=== PATIENT | male | born 1955 | race Caucasian/White ===

== ENCOUNTER 2020-11-24 09:06 | Outpatient (REF) | payer MEDICARE, SELFPAY ==
--- NOTE | ~2020-11-24 | XR_ITS ---
EXAMINATION: XR KNEE, RIGHT XR KNEE, LEFT CLINICAL INFORMATION: Pain. COMPARISON: None. TECHNIQUE: AP, lateral, and sunrise views of the right and left knee. FINDINGS: Right Knee: Moderate medial compartment joint space narrowing. Small medial and patellofemoral compartment marginal osteophytes. No osseous erosion. No fracture or dislocation. No abnormal soft tissue calcification. No significant joint effusion. Left Knee: Moderate medial compartment joint space narrowing. Small patellofemoral and medial compartment marginal osteophytes. No osseous erosion. No fracture or dislocation. No abnormal soft tissue calcification. Trace joint effusion. XR/XR knee RT 3V IMPRESSION: RIGHT KNEE: Moderate medial and mild patellofemoral compartment osteoarthritis. LEFT KNEE: Moderate medial and mild patellofemoral compartment osteoarthritis. Trace joint effusion.
--- NOTE | ~2020-11-24 | XR_ITS ---
EXAMINATION: XR KNEE, RIGHT XR KNEE, LEFT CLINICAL INFORMATION: Pain. COMPARISON: None. TECHNIQUE: AP, lateral, and sunrise views of the right and left knee. FINDINGS: Right Knee: Moderate medial compartment joint space narrowing. Small medial and patellofemoral compartment marginal osteophytes. No osseous erosion. No fracture or dislocation. No abnormal soft tissue calcification. No significant joint effusion. Left Knee: Moderate medial compartment joint space narrowing. Small patellofemoral and medial compartment marginal osteophytes. No osseous erosion. No fracture or dislocation. No abnormal soft tissue calcification. Trace joint effusion. XR/XR knee LT 3V IMPRESSION: RIGHT KNEE: Moderate medial and mild patellofemoral compartment osteoarthritis. LEFT KNEE: Moderate medial and mild patellofemoral compartment osteoarthritis. Trace joint effusion.
--- NOTE | ~2020-11-24 | XR_ITS ---
EXAMINATION: XR HAND/WRIST, RIGHT XR HAND/WRIST, LEFT CLINICAL INFORMATION: Pain. COMPARISON: None. TECHNIQUE: AP, oblique, lateral, and scaphoid views of the bilateral hands and wrists. FINDINGS: Right Hand and Wrist: No acute fracture or dislocation. Possible corticated ossifications adjacent to the ulnar styloid, which could represent accessory ossicles versus remote fracture fragments. Normal carpal alignment. Tiny marginal osteophytes at the triscaphe and 1st carpometacarpal joints as well as at the 1st metacarpal phalangeal joint. No osseous erosion. Left Hand and Wrist: No acute fracture or dislocation. Normal carpal alignment. Tiny marginal osteophytes at the triscaphe and 1st carpometacarpal joints. No osseous erosion. No abnormal soft tissue calcification. XR/XR hand wrist RT IMPRESSION: RIGHT HAND AND WRIST: Mild degenerative arthritis at the triscaphe, 1st carpal metacarpal, and 1st metacarpal phalangeal joints. LEFT HAND AND WRIST: Mild degenerative arthritis at the triscaphe and 1st carpal metacarpal joints.
--- NOTE | ~2020-11-24 | XR_ITS ---
EXAMINATION: XR HAND/WRIST, RIGHT XR HAND/WRIST, LEFT CLINICAL INFORMATION: Pain. COMPARISON: None. TECHNIQUE: AP, oblique, lateral, and scaphoid views of the bilateral hands and wrists. FINDINGS: Right Hand and Wrist: No acute fracture or dislocation. Possible corticated ossifications adjacent to the ulnar styloid, which could represent accessory ossicles versus remote fracture fragments. Normal carpal alignment. Tiny marginal osteophytes at the triscaphe and 1st carpometacarpal joints as well as at the 1st metacarpal phalangeal joint. No osseous erosion. Left Hand and Wrist: No acute fracture or dislocation. Normal carpal alignment. Tiny marginal osteophytes at the triscaphe and 1st carpometacarpal joints. No osseous erosion. No abnormal soft tissue calcification. XR/XR hand wrist LT IMPRESSION: RIGHT HAND AND WRIST: Mild degenerative arthritis at the triscaphe, 1st carpal metacarpal, and 1st metacarpal phalangeal joints. LEFT HAND AND WRIST: Mild degenerative arthritis at the triscaphe and 1st carpal metacarpal joints.
[2020-11-24 10:42] LABS: MANUAL DIFF FLAG NO
[2020-11-24 11:00] LABS: Basophils Absolute Auto 0.1 X10*3/uL (0.0-0.2); Basophils Percent Auto 0.9 % (0-2); Eosinophils Absolute Auto 0.3 X10*3/uL (0.0-0.4); Eosinophils Percent Auto 3.6 % (0-4); Hematocrit 44.8 % (42-52); Hemoglobin 14.4 g/dl (14.0-18.0); Imm Gran Abs Auto 0.03 X10*3/uL (0.00-0.03); Imm Gran Pct Auto 0.4 % (0.0-0.4); Lymphocytes Absolute Auto 3.5 X10*3/uL (1.2-4.9); Lymphocytes Percent Auto 43.5 % (20-40); Mean Corpuscular HGB Conc 32.1 g/dl (31.0-36.0); Mean Corpuscular Hemoglobin 29.4 pg (27.0-33.0); Mean Corpuscular Volume 91.4 fL (80-98); Mean Platelet Volume 10.9 fL (9.4-12.4); Monocytes Absolute Auto 0.5 X10*3/uL (0.1-1.2); Monocytes Percent Auto 5.7 % (2-11); Neutrophils Absolute Auto 3.7 X10*3/uL (2.0-8.3); Neutrophils Percent Auto 45.9 % (45-73); Platelet Count 212 X10*3/uL (160-400); Red Cell Distribution Width 13.7 % (11.0-16.0)
[2020-11-24 11:31] LABS: Alanine Aminotransferase 27 U/L (0-40); Albumin Level 4.5 g/dL (3.5-5.0); Alkaline Phosphatase 82 U/L (39-117); Anion Gap 12 (12-20); Aspartate Amino Transferase 19 U/L (5-37); Bilirubin Total 0.6 mg/dL (0.0-1.0); Blood Urea Nitrogen 24 mg/dL (9-16); C Reactive Protein 0.43 mg/dL (< or = 0.50); Calcium 9.4 mg/dL (8.4-10.2); Carbon Dioxide 25 mmol/L (22-29); Chloride 109 mmol/L (96-108); Estimated Glomerular Filt Rate > 60; Glucose Random 116 mg/dL (60-115); Potassium 4.2 mmol/L (3.3-5.1); Rheumatoid Factor 15.4 IU/mL (<15.0); Sodium 142 mmol/L (135-145); Total Protein 7.3 g/dL (6.5-8.0)
[2020-11-24 11:35] LABS: Erythrocyte Sedimentation Rate 10 MM/HR (0-15)
[2020-11-24 11:54] LABS: HBc Num1 0.14 S/CO (0.00-0.79); Hepatitis B Core Antibody Nonreactive (Nonreactive); Hepatitis B Surface Antigen Negative (Negative); ~HepC Num1 0.07 S/CO (0.00-0.79); ~Hepatitis C Antibody Nonreactive (Nonreactive)
[2020-11-24 12:06] LABS: ~Hepatitis B Surface Antibody NONREACTIVE (Nonreactive)
[2020-11-24 13:57] LABS: HBS Num1 0.23 mIU/mL (0-7.99); Hepatitis A Antibody IgM 0.25 Index (0-0.79); ~Hepatitis A Antibody IgM Nonreactive (Nonreactive)
[2020-11-26 12:31] LABS: Cyclic Citrullinated Peptide <16 UNITS
[2020-11-27 18:56] LABS: TS Negative Control Passed; TS Panel A 5; TS Panel B 1; TS Positive Control Passed; TSpotTB BORDERLINE (SeeBelow)
== END 2020-11-24 09:07 | disposition home or self-care (01) ==
LOC: HO.LAB 09:06
PROVIDERS: PCP Internal Medicine; Visit Provider Student in an Organized Health Care Education/Training Program
DX: Z01.84 Encounter for antibody response examination (principal); Z11.59 Encounter for screening for other viral diseases; Z11.1 Encounter for screening for respiratory tuberculosis; M79.641 Pain in right hand; M79.642 Pain in left hand; M25.561 Pain in right knee; M25.562 Pain in left knee
CPT/HCPCS: 36415; 73110; 73130; 73562; 80053; 85025; 85652; 86140; 86200; 86431; 86481; 86704; 86706; 86709; 86803; 87340; 99202

== ENCOUNTER → 2020-12-07 10:48 | Outpatient (BNVA) | payer MEDICARE, SELFPAY | PROVIDERS: PCP Internal Medicine; Visit Provider Student in an Organized Health Care Education/Training Program | DX: M05.9 Rheumatoid arthritis with rheumatoid factor, unspecified (principal); M25.561 Pain in right knee; M25.562 Pain in left knee; G89.29 Other chronic pain; M19.041 Primary osteoarthritis, right hand; M19.042 Primary osteoarthritis, left hand | CPT/HCPCS: 99212 ==

== ENCOUNTER 2021-03-11 10:59 | Outpatient (REF) | payer MEDICARE, SELFPAY ==
[2021-03-11 12:03] LABS: MANUAL DIFF FLAG NO
[2021-03-11 12:40] LABS: Basophils Absolute Auto 0.1 X10*3/uL (0.0-0.2); Basophils Percent Auto 0.5 % (0-2); Eosinophils Absolute Auto 0.3 X10*3/uL (0.0-0.4); Eosinophils Percent Auto 3.5 % (0-4); Hematocrit 43.1 % (42-52); Hemoglobin 14.6 g/dl (14.0-18.0); Imm Gran Abs Auto 0.03 X10*3/uL (0.00-0.03); Imm Gran Pct Auto 0.3 % (0.0-0.4); Lymphocytes Absolute Auto 4.5 X10*3/uL (1.2-4.9); Lymphocytes Percent Auto 47.6 % (20-40); Mean Corpuscular HGB Conc 33.9 g/dl (31.0-36.0); Mean Corpuscular Volume 91.5 fL (80-98); Mean Platelet Volume 11.2 fL (9.4-12.4); Monocytes Absolute Auto 0.6 X10*3/uL (0.1-1.2); Monocytes Percent Auto 6.2 % (2-11); Neutrophils Percent Auto 41.9 % (45-73); Platelet Count 205 X10*3/uL (160-400); Red Blood Count 4.71 X10*6/uL (4.60-5.80); Red Cell Distribution Width 13.4 % (11.0-16.0); White Blood Count 9.5 X10*3/uL (4.8-10.8)
[2021-03-11 13:11] LABS: Alanine Aminotransferase 25 U/L (0-40); Albumin Level 4.4 g/dL (3.5-5.0); Alkaline Phosphatase 96 U/L (39-117); Anion Gap 11 (12-20); Aspartate Amino Transferase 19 U/L (5-37); Bilirubin Total 0.4 mg/dL (0.0-1.0); Blood Urea Nitrogen 25 mg/dL (9-16); C Reactive Protein 0.69 mg/dL (< or = 0.50); Calcium 9.2 mg/dL (8.4-10.2); Carbon Dioxide 28 mmol/L (22-29); Chloride 106 mmol/L (96-108); Estimated Glomerular Filt Rate > 60; Glucose Random 77 mg/dL (60-115); Potassium 4.1 mmol/L (3.3-5.1); Sodium 141 mmol/L (135-145); Total Protein 7.7 g/dL (6.5-8.0)
[2021-03-11 13:34] LABS: Erythrocyte Sedimentation Rate 9 MM/HR (0-15)
== END 2021-03-11 11:00 | disposition home or self-care (01) ==
LOC: HO.LAB 10:59
PROVIDERS: PCP Internal Medicine; Visit Provider Nurse Practitioner Family
DX: M05.9 Rheumatoid arthritis with rheumatoid factor, unspecified (principal); M19.041 Primary osteoarthritis, right hand; M19.042 Primary osteoarthritis, left hand
CPT/HCPCS: 36415; 80053; 85025; 85652; 86140; 99212

== ENCOUNTER 2021-04-05 15:00 | Outpatient (RCR) | payer MEDICARE, SELFPAY ==
--- NOTE | 2021-03-21 15:28 | MHC.OT.OEV ---
[address] [phone] F: [phone] Occupational Therapy Evaluation Diagnosis: BILATERAL HAND PAIN Date of Onset: 02/12/00 Attending Provider: Layla Rangel Prescribed Treatment: FRANKLIN KINCAID Follow Up Appointment: 06/10/21 History of Current Condition: REPORTS ABOUT A TWENTY YEAR HISTORY OF B/L HAND PAIN. RECENTLY SEEN BY EXTRACTOR TENDER RAW STOCK WHO DIAGNOSED HIM WITH RA ([facility] FAMILY HISTORY). HE REPORTS CONSTANT ACHY, THROBBING PAIN IN HANDS. INCREASED STIFFNESS IN THE MORNING, DIFFICULTIES MAKING A FIST YET IMPROVES WITH ACTIVITY. 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 USING MODIFIED VEHICLE FUEL SYSTEMS CONVERTER AND CARRYING WITH SHOULDER AND ELBOW TO LIFT HEAVY ITEMS. HAS STOPPED PLAYING GUITAR DUE TO B/L HAND PAIN. Sleep: MODERATE DIFFICULTIES: OCCASIONALLY WAKES FROM SLEEP DUE TO PAIN. 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 Driving: NO DIFFICULTIES Vision: GLASSES Pain Assessment Pain Score: 3-9/10 Pain Scale Used: Numeric (0 - 10) Pain Location and Description: ACHY, B/L HAND PAIN MCPs, IPs AND CMC 3/10 AT REST/ DURING THE DAY; 8-9/10 AT NIGHT Aggravating Factors: GRIPPING, COLD Alleviating Factors: HEAT, TRAMADOL (NO RELIEF YET) Skin and Soft Tissue Assessment Skin and Soft Tissue: Swelling Comments: REPORTS EDEMA IN IPs AND MCPs IN B/L HANDS Edema Assessment Upper Extremity: Right Impaired Left Impaired Lower Extremity: Comments: CIRCUMFERENCE OF MCPs D2-D5: RIGHT 22.2 CM, LEFT 21.9 CM Dexterity Assessment Dexterity: WFL Comments: FUNCTIONAL DEXTERITY TEST: 24 SECONDS B/L HANDS Special Tests Comments: AROM(PROM) Strength Digits Index MCP: PIP: DIP: Long MCP: PIP: DIP: Ring MCP: PIP: DIP: Small MCP: PIP: DIP: Comments: Gross Grasp: R 45, L 38 Lateral Pinch: R 11, L 10 Two-Point Pinch: Three-Jaw Dyllan: Comments: Patient Education 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 Patient demonstrates Patient verbalizes Barriers to Learning: None Readiness for Learning: Accepting Who was educated? Patient Comments: Plan of Care Assessment: OSMANY PRESENTS WITH ABOUT A TWENTY YEAR HISTORY OF B/L HAND PAIN. HE RECENTLY SAW A EXTRACTOR TENDER RAW STOCK FOR THE FIRST TIME IN NOVEMBER 2020 WHO DIAGNOSED HIM WITH RHEUMATOID ARTHRITIS. HE HAS A 43 YEAR HISTORY OF WORKING IN THE [employer] AND HEAVY USE OF HANDS WITH HIS HOBBIES. HE REPORTS HIS PAIN IS GREATEST IN THE MORNING AND LASTS FOR ABOUT 30 MINUTES. HE HAS BEEN ABLE TO TOLERATE A CONSTANT ACHY PAIN DURING THE DAY. A 57% LIMITATION IS REPORTED PER THE QUICK DASH ASSESSMENT. ONGOING SKILLED OT IS WARRANTED TO ACHIEVE OPTIMAL FUNCTIONAL LEVEL AND IMPROVE QOL. STG Duration: 3 WEEKS Short Term Goals: IND HEP IND JOINT PROTECTION AND ACTIVITY MODIFICATION IND USE OF HEAT, INCLUDING HOME PARAFFIN UNIT INCREASE B/L VEHICLE FUEL SYSTEMS CONVERTER STRENGTH BY 10 POUNDS REPORT MIN DIFFICULTIES WITH SLEEPING REPORT <4/10 PAIN WITH ADLs AND LIGHT IADLs QUICK DASH <40% LTG Duration: Oracle Ebs Architect Goals: SEE ABOVE Frequency and Duration: The patient will be seen 2X/WEEK FOR 3 WEEKS Treatment Plan: Therapeutic Exercise Therapeutic Activity Home Exercise Program Splinting Neuro Re-ed Patient Education Desensitization/Sensory Re-ed Edema Control ADL Training Ultrasound NMES Iontophoresis Paraffin Fluidotherapy MHP Cold Packs Joint Mobilization Soft Tissue Mobilization Kinesiotaping Other (see comments) Electronically Signed By: LEODAN NETTLES OTR/L Reviewed/agree with student documentation: N/A Therapist: Please sign and return to therapist, Thank you for your referral.
--- NOTE | 2021-04-26 14:21 | MHC.OT.DC ---
[address] [phone] F: [phone] Occupational Therapy Discharge Note Provider: Layla Rangel Diagnosis: BILATERAL HAND PAIN Date of Evaluation: 03/21/21 Date of Discharge: 04/26/21 Treatments to Date: 3 Cancellations to Date: 2 No Shows to Date: 3 Discharge Status: Recommend MD Follow-up Visit Non-compliance Discharge Summary: MR LLAMAS WAS SEEN FOR AN INITIAL EVALUATION AND TWO ADDITIONAL TREATMENT SESSIONS. DURING HIS TIME IN OT, A CUSTOM NIGHT ORTHOSIS WAS FABRICATED AND Pt WAS EDUCATED ON JOINT PROTECTION, HEP AND USE OF A HOME PARAFFIN UNIT. Pt CONTINUED TO NEED ADDITIONAL EDUCATION ON RA MANAGEMENT AND TASK MODIFICATIONS. Pt HAS HAD A THREE WEEK LAPSE IN HIS THERAPY, WELL THREE NO-SHOWS. Pt WILL BE DISCHARGED FROM OT AND RECOMMEND MD FOLLOW UP. Electronically Signed By: LEODAN NETTLES OTR/Luciano Reviewed/agree with student documentation: N/A Therapist: Please Sign and return to therapist, thank you for your referral.
== END 2021-04-26 14:20 | disposition home or self-care (01) ==
LOC: HO.OT 15:00
PROVIDERS: PCP Internal Medicine; Visit Provider Nurse Practitioner Family
DX: M79.641 Pain in right hand (principal); M79.642 Pain in left hand
CPT/HCPCS: 29125; 97018; 97035; 97110; 97165; 97760

== ENCOUNTER 2021-06-10 13:32 | Outpatient (REF) | payer MEDICARE, SELFPAY ==
[2021-06-10 14:41] LABS: MANUAL DIFF FLAG NO
[2021-06-10 15:08] LABS: Basophils Absolute Auto 0.1 X10*3/uL (0.0-0.2); Basophils Percent Auto 0.6 % (0-2); Eosinophils Absolute Auto 0.3 X10*3/uL (0.0-0.4); Eosinophils Percent Auto 2.6 % (0-4); Hematocrit 45.3 % (42.0-52.0); Hemoglobin 14.9 g/dl (14.0-18.0); Imm Gran Abs Auto 0.05 X10*3/uL (0.00-0.03); Imm Gran Pct Auto 0.4 % (0.0-0.4); Lymphocytes Absolute Auto 4.1 X10*3/uL (1.2-4.9); Lymphocytes Percent Auto 35.7 % (20-40); Mean Corpuscular HGB Conc 32.9 g/dl (31.0-36.0); Mean Corpuscular Hemoglobin 29.7 pg (27.0-33.0); Mean Corpuscular Volume 90.2 fL (80.0-98.0); Mean Platelet Volume 10.8 fL (9.4-12.4); Monocytes Absolute Auto 0.7 X10*3/uL (0.1-1.2); Neutrophils Absolute Auto 6.3 x10*3/uL (2.0-8.3); Neutrophils Percent Auto 54.7 % (45-73); Platelet Count 218 X10*3/uL (160-400); Red Blood Count 5.02 X10*6/uL (4.60-5.80); Red Cell Distribution Width 13.3 % (11.0-16.0); White Blood Count 11.5 X10*3/uL (4.8-10.8)
[2021-06-10 15:33] LABS: Alanine Aminotransferase 23 U/L (0-40); Albumin Level 4.5 g/dL (3.5-5.0); Alkaline Phosphatase 88 U/L (39-117); Anion Gap 12 (12-20); Aspartate Amino Transferase 19 U/L (5-37); Bilirubin Total 0.6 mg/dL (0.0-1.0); Blood Urea Nitrogen 25 mg/dL (9-16); C Reactive Protein 0.54 mg/dL (< or = 0.50); Carbon Dioxide 29 mmol/L (22-29); Chloride 105 mmol/L (96-108); Estimated Glomerular Filt Rate 55; Glucose Random 94 mg/dL (60-115); Potassium 4.8 mmol/L (3.3-5.1); Sodium 141 mmol/L (135-145); Total Protein 7.7 g/dL (6.5-8.0)
[2021-06-10 20:43] LABS: Erythrocyte Sedimentation Rate 10 MM/HR (0-15)
== END 2021-06-10 13:33 | disposition home or self-care (01) ==
LOC: HO.LAB 13:32
PROVIDERS: PCP Internal Medicine; Visit Provider Nurse Practitioner Family
DX: M05.9 Rheumatoid arthritis with rheumatoid factor, unspecified (principal); M19.041 Primary osteoarthritis, right hand; M19.042 Primary osteoarthritis, left hand
CPT/HCPCS: 36415; 80053; 85025; 85652; 86140; 99212

== ENCOUNTER 2021-08-11 12:58 | Outpatient (REF) | payer MEDICARE, SELFPAY ==
[2021-08-11 14:31] LABS: MANUAL DIFF FLAG NO
[2021-08-11 14:57] LABS: Basophils Absolute Auto 0.1 X10*3/uL (0.0-0.2); Basophils Percent Auto 0.7 % (0-2); Eosinophils Absolute Auto 0.2 X10*3/uL (0.0-0.4); Eosinophils Percent Auto 2.7 % (0-4); Hematocrit 45.7 % (42.0-52.0); Hemoglobin 15.1 g/dl (14.0-18.0); Imm Gran Abs Auto 0.03 X10*3/uL (0.00-0.03); Imm Gran Pct Auto 0.3 % (0.0-0.4); Lymphocytes Absolute Auto 3.8 X10*3/uL (1.2-4.9); Lymphocytes Percent Auto 41.7 % (20-40); Mean Corpuscular Hemoglobin 30.1 pg (27.0-33.0); Mean Corpuscular Volume 91.2 fL (80.0-98.0); Mean Platelet Volume 10.6 fL (9.4-12.4); Monocytes Absolute Auto 0.5 X10*3/uL (0.1-1.2); Neutrophils Absolute Auto 4.4 x10*3/uL (2.0-8.3); Neutrophils Percent Auto 48.6 % (45-73); Platelet Count 239 X10*3/uL (160-400); Red Blood Count 5.01 X10*6/uL (4.60-5.80); Red Cell Distribution Width 13.6 % (11.0-16.0)
[2021-08-11 15:18] LABS: Alanine Aminotransferase 25 U/L (0-40); Albumin Level 4.6 g/dL (3.5-5.0); Alkaline Phosphatase 88 U/L (39-117); Anion Gap 13 (12-20); Aspartate Amino Transferase 18 U/L (5-37); Bilirubin Total 0.4 mg/dL (0.0-1.0); Blood Urea Nitrogen 20 mg/dL (9-16); C Reactive Protein 0.84 mg/dL (< or = 0.50); Calcium 9.9 mg/dL (8.4-10.2); Carbon Dioxide 28 mmol/L (22-29); Chloride 104 mmol/L (96-108); Estimated Glomerular Filt Rate 56; Glucose Random 105 mg/dL (60-115); Potassium 5.1 mmol/L (3.3-5.1); Sodium 140 mmol/L (135-145); Total Protein 7.6 g/dL (6.5-8.0)
[2021-08-11 15:34] LABS: Erythrocyte Sedimentation Rate 14 MM/HR (0-15)
[2021-08-13 11:20] LABS: TS Negative Control Passed; TS Panel A 0; TS Panel B 0; TS Positive Control Passed; TSpotTB Negative (Negative)
== END 2021-08-11 12:59 | disposition home or self-care (01) ==
LOC: HO.LAB 12:58
PROVIDERS: PCP Internal Medicine; Visit Provider Nurse Practitioner Family
DX: Z11.1 Encounter for screening for respiratory tuberculosis (principal); M05.9 Rheumatoid arthritis with rheumatoid factor, unspecified; M19.041 Primary osteoarthritis, right hand; M19.042 Primary osteoarthritis, left hand
CPT/HCPCS: 36415; 80053; 85025; 85652; 86140; 86481; 99212

== ENCOUNTER 2021-09-12 09:35 | Outpatient (REF) | payer MEDICARE, SELFPAY ==
[2021-09-12 09:57] LABS: MANUAL DIFF FLAG NO
[2021-09-12 10:20] LABS: Basophils Absolute Auto 0.1 X10*3/uL (0.0-0.2); Basophils Percent Auto 0.6 % (0-2); Eosinophils Absolute Auto 0.4 X10*3/uL (0.0-0.4); Eosinophils Percent Auto 3.7 % (0-4); Hematocrit 44.1 % (42.0-52.0); Hemoglobin 14.6 g/dl (14.0-18.0); Imm Gran Abs Auto 0.04 X10*3/uL (0.00-0.03); Imm Gran Pct Auto 0.4 % (0.0-0.4); Lymphocytes Absolute Auto 3.8 X10*3/uL (1.2-4.9); Lymphocytes Percent Auto 39.4 % (20-40); Mean Corpuscular HGB Conc 33.1 g/dl (31.0-36.0); Mean Corpuscular Hemoglobin 30.4 pg (27.0-33.0); Mean Corpuscular Volume 91.9 fL (80.0-98.0); Mean Platelet Volume 10.7 fL (9.4-12.4); Monocytes Absolute Auto 0.6 X10*3/uL (0.1-1.2); Monocytes Percent Auto 5.8 % (2-11); Neutrophils Absolute Auto 4.9 x10*3/uL (2.0-8.3); Neutrophils Percent Auto 50.1 % (45-73); Platelet Count 206 X10*3/uL (160-400); Red Cell Distribution Width 14.3 % (11.0-16.0); White Blood Count 9.7 X10*3/uL (4.8-10.8)
[2021-09-12 11:01] LABS: Alanine Aminotransferase 31 U/L (0-40); Albumin Level 4.4 g/dL (3.5-5.0); Alkaline Phosphatase 89 U/L (39-117); Anion Gap 13 (12-20); Aspartate Amino Transferase 22 U/L (5-37); Bilirubin Total 0.6 mg/dL (0.0-1.0); Blood Urea Nitrogen 30 mg/dL (9-16); C Reactive Protein 0.48 mg/dL (< or = 0.50); Calcium 10.2 mg/dL (8.4-10.2); Carbon Dioxide 27 mmol/L (22-29); Chloride 106 mmol/L (96-108); Estimated Glomerular Filt Rate 53; Glucose Random 107 mg/dL (60-115); Potassium 4.9 mmol/L (3.3-5.1); Sodium 141 mmol/L (135-145); Total Protein 7.3 g/dL (6.5-8.0)
[2021-09-12 11:15] LABS: Erythrocyte Sedimentation Rate 8 MM/HR (0-15)
== END 2021-09-12 09:36 | disposition home or self-care (01) ==
LOC: HO.LAB 09:35
PROVIDERS: Visit Provider Nurse Practitioner Family
DX: M05.9 Rheumatoid arthritis with rheumatoid factor, unspecified (principal)
CPT/HCPCS: 36415; 80053; 85025; 85652; 86140

== ENCOUNTER → 2021-10-05 10:22 | Outpatient (BNVA) | payer MEDICARE, SELFPAY | PROVIDERS: PCP Internal Medicine; Visit Provider Nurse Practitioner Family | DX: M05.9 Rheumatoid arthritis with rheumatoid factor, unspecified (principal); M19.041 Primary osteoarthritis, right hand; M19.042 Primary osteoarthritis, left hand; Z79.891 Long term (current) use of opiate analgesic; Z79.899 Other long term (current) drug therapy | CPT/HCPCS: 99212 ==

== ENCOUNTER → 2022-01-02 08:07 | Outpatient (BNVA) | payer MEDICARE, SELFPAY | PROVIDERS: PCP Internal Medicine; Visit Provider Nurse Practitioner Family | DX: M05.9 Rheumatoid arthritis with rheumatoid factor, unspecified (principal); M19.041 Primary osteoarthritis, right hand; M19.042 Primary osteoarthritis, left hand | CPT/HCPCS: 99212 ==

== ENCOUNTER 2022-02-13 10:45 | Outpatient (REF) | payer MEDICARE, SELFPAY ==
--- NOTE | ~2022-02-13 | XR_ITS ---
EXAMINATION: XR HAND, BILATERAL CLINICAL INFORMATION: Rheumatoid arthritis. COMPARISON: Previous x-ray November 2020. TECHNIQUE: 3 views of each hand. FINDINGS: Right: Bone alignment is normal. No fracture or dislocation is seen. There is mild arthritis at the 1st MCP and FPC joint. There may be slight increased extension at the DIP joints of the 3rd, 4th and question 5th fingers. Joint spaces are otherwise normal. No erosions. There are soft tissue ossifications adjacent to the ulnar styloid that appear unchanged. Soft tissues are otherwise normal. Left: Bone alignment is normal. No fracture or dislocation is seen. There may be slight hyperextension of the DIP joints of the 3rd and 4th fingers. There is mild arthritis at the first MCP and FPC joints and DIP joints. Joint spaces are otherwise normal. No erosions are seen. There is a soft tissue dense calcification over the volar ulnar side of the wrist that appears unchanged. XR/XR hand RT min 3V IMPRESSION: Right: Mild degenerative arthritis at the thumb. Left: Mild degenerative arthritis at the thumb and DIP joints.
--- NOTE | ~2022-02-13 | XR_ITS ---
EXAMINATION: XR HAND, BILATERAL CLINICAL INFORMATION: Rheumatoid arthritis. COMPARISON: Previous x-ray November 2020. TECHNIQUE: 3 views of each hand. FINDINGS: Right: Bone alignment is normal. No fracture or dislocation is seen. There is mild arthritis at the 1st MCP and S[facility] joint. There may be slight increased extension at the DIP joints of the 3rd, 4th and question 5th fingers. Joint spaces are otherwise normal. No erosions. There are soft tissue ossifications adjacent to the ulnar styloid that appear unchanged. Soft tissues are otherwise normal. Left: Bone alignment is normal. No fracture or dislocation is seen. There may be slight hyperextension of the DIP joints of the 3rd and 4th fingers. There is mild arthritis at the first MCP and [facility] joints and DIP joints. Joint spaces are otherwise normal. No erosions are seen. There is a soft tissue dense calcification over the volar ulnar side of the wrist that appears unchanged. XR/XR hand LT min 3V IMPRESSION: Right: Mild degenerative arthritis at the thumb. Left: Mild degenerative arthritis at the thumb and DIP joints.
== END 2022-02-13 10:46 | disposition home or self-care (01) ==
LOC: HO.XRAY 10:45
PROVIDERS: PCP Internal Medicine; Visit Provider Nurse Practitioner Family
DX: M05.9 Rheumatoid arthritis with rheumatoid factor, unspecified (principal)
CPT/HCPCS: 73130

== ENCOUNTER → 2022-03-15 15:08 | Outpatient (BNVA) | payer MEDICARE, SELFPAY | PROVIDERS: PCP Internal Medicine; Visit Provider Urology | DX: N40.1 Benign prostatic hyperplasia with lower urinary tract symptoms (principal); N13.8 Other obstructive and reflux uropathy; N52.9 Male erectile dysfunction, unspecified; R97.20 Elevated prostate specific antigen [PSA] | CPT/HCPCS: 99202 ==

== ENCOUNTER → 2022-04-10 08:16 | Outpatient (BNVA) | payer MEDICARE, SELFPAY | PROVIDERS: PCP Internal Medicine; Referring Provider Internal Medicine; Visit Provider Nurse Practitioner Family | DX: M05.9 Rheumatoid arthritis with rheumatoid factor, unspecified (principal); M19.041 Primary osteoarthritis, right hand; M19.042 Primary osteoarthritis, left hand | CPT/HCPCS: 99212 ==

== ENCOUNTER 2022-04-28 11:06 | Outpatient (REF) | payer MEDICARE, SELFPAY ==
[2022-04-28 14:22] LABS: MANUAL DIFF FLAG NO
[2022-04-28 14:31] LABS: Basophils Absolute Auto 0.1 X10*3/uL (0.0-0.2); Basophils Percent Auto 0.8 % (0-2); Eosinophils Absolute Auto 0.3 X10*3/uL (0.0-0.4); Eosinophils Percent Auto 3.6 % (0-4); Hematocrit 43.4 % (42.0-52.0); Hemoglobin 14.2 g/dl (14.0-18.0); Imm Gran Abs Auto 0.04 X10*3/uL (0.00-0.03); Imm Gran Pct Auto 0.4 % (0.0-0.4); Lymphocytes Absolute Auto 4.4 X10*3/uL (1.2-4.9); Lymphocytes Percent Auto 49.4 % (20-40); Mean Corpuscular HGB Conc 32.7 g/dl (31.0-36.0); Mean Corpuscular Volume 94.8 fL (80.0-98.0); Mean Platelet Volume 11.1 fL (9.4-12.4); Monocytes Absolute Auto 0.6 X10*3/uL (0.1-1.2); Monocytes Percent Auto 6.9 % (2-11); Neutrophils Absolute Auto 3.5 x10*3/uL (2.0-8.3); Neutrophils Percent Auto 38.9 % (45-73); Platelet Count 188 X10*3/uL (160-400); Red Blood Count 4.58 X10*6/uL (4.60-5.80); Red Cell Distribution Width 14.3 % (11.0-16.0)
[2022-04-28 14:50] LABS: Alanine Aminotransferase 38 U/L (0-40); Albumin Level 4.3 g/dL (3.5-5.0); Alkaline Phosphatase 97 U/L (39-117); Anion Gap 11 (12-20); Aspartate Amino Transferase 22 U/L (5-37); Bilirubin Total 0.5 mg/dL (0.0-1.0); Blood Urea Nitrogen 23 mg/dL (9-16); C Reactive Protein 0.57 mg/dL (< or = 0.50); Calcium 9.3 mg/dL (8.4-10.2); Carbon Dioxide 27 mmol/L (22-29); Chloride 103 mmol/L (96-108); Estimated Glomerular Filt Rate > 60; Glucose Random 156 mg/dL (60-115); Potassium 4.4 mmol/L (3.3-5.1); Sodium 137 mmol/L (135-145); Total Protein 7.3 g/dL (6.5-8.0)
[2022-04-28 17:03] LABS: Erythrocyte Sedimentation Rate 12 MM/HR (0-15)
== END 2022-04-28 11:07 | disposition home or self-care (01) ==
LOC: HO.10HDL 11:06
PROVIDERS: Visit Provider Nurse Practitioner Family
DX: M19.041 Primary osteoarthritis, right hand (principal); M19.042 Primary osteoarthritis, left hand; M05.9 Rheumatoid arthritis with rheumatoid factor, unspecified
CPT/HCPCS: 36415; 80053; 85025; 85652; 86140

== ENCOUNTER 2022-05-24 13:33 | Outpatient (REF) | payer MEDICARE, SELFPAY ==
--- NOTE | ~2022-05-24 | XR_ITS ---
EXAMINATION: XR HIP, RIGHT CLINICAL INFORMATION: Pain right hip COMPARISON: None TECHNIQUE: Two views of the right hip. FINDINGS: Bones and soft tissues are normal. No fracture. Alignment is anatomic. Hip joint space is maintained. XR/XR hip RT min 2V IMPRESSION: Unremarkable right hip.
== END 2022-05-24 13:34 | disposition home or self-care (01) ==
LOC: HO.XRAY 13:33
PROVIDERS: PCP Internal Medicine; Visit Provider Nurse Practitioner Family
DX: M25.551 Pain in right hip (principal); M05.9 Rheumatoid arthritis with rheumatoid factor, unspecified; M19.041 Primary osteoarthritis, right hand; M19.042 Primary osteoarthritis, left hand
CPT/HCPCS: 73502; 99212

== ENCOUNTER → 2022-05-29 13:29 | Outpatient (BNVA) | payer MEDICARE, SELFPAY | PROVIDERS: PCP Internal Medicine; Visit Provider Nurse Practitioner Family | DX: M05.9 Rheumatoid arthritis with rheumatoid factor, unspecified (principal); M19.041 Primary osteoarthritis, right hand; M19.042 Primary osteoarthritis, left hand; M25.551 Pain in right hip | CPT/HCPCS: 99212 ==

== ENCOUNTER → 2022-07-04 13:16 | Outpatient (BNVA) | payer MEDICARE, SELFPAY | PROVIDERS: PCP Internal Medicine; Visit Provider Urology | DX: N52.9 Male erectile dysfunction, unspecified (principal); N40.1 Benign prostatic hyperplasia with lower urinary tract symptoms | CPT/HCPCS: Q3014 ==

== ENCOUNTER 2022-07-07 10:04 | Outpatient (REF) | payer MEDICARE, SELFPAY ==
[2022-07-07 11:49] LABS: Basophils Absolute Auto 0.1 X10*3/uL (0.0-0.2); Basophils Percent Auto 0.7 % (0-2); Eosinophils Absolute Auto 0.3 X10*3/uL (0.0-0.4); Eosinophils Percent Auto 3.1 % (0-4); Hematocrit 44.3 % (42.0-52.0); Hemoglobin 14.6 g/dl (14.0-18.0); Imm Gran Abs Auto 0.03 X10*3/uL (0.00-0.03); Imm Gran Pct Auto 0.3 % (0.0-0.4); Lymphocytes Absolute Auto 5.3 X10*3/uL (1.2-4.9); Lymphocytes Percent Auto 54.4 % (20-40); MANUAL DIFF FLAG SCAN; Mean Corpuscular Hemoglobin 31.1 pg (27.0-33.0); Mean Corpuscular Volume 94.3 fL (80.0-98.0); Mean Platelet Volume 11.4 fL (9.4-12.4); Monocytes Absolute Auto 0.5 X10*3/uL (0.1-1.2); Monocytes Percent Auto 5.2 % (2-11); Neutrophils Absolute Auto 3.5 x10*3/uL (2.0-8.3); Neutrophils Percent Auto 36.3 % (45-73); Platelet Count 203 X10*3/uL (160-400); Red Cell Distribution Width 13.8 % (11.0-16.0); SCAN SMEAR FLAG 1; White Blood Count 9.7 X10*3/uL (4.8-10.8)
[2022-07-07 11:59] LABS: Alanine Aminotransferase 28 U/L (0-40); Aspartate Amino Transferase 17 U/L (5-37); C Reactive Protein 0.52 mg/dL (< or = 0.50); Estimated Glomerular Filt Rate > 60
[2022-07-07 12:19] LABS: SLIDE REVIEW VERIFIED
[2022-07-07 12:31] LABS: Erythrocyte Sedimentation Rate 7 MM/HR (0-15)
== END 2022-07-07 10:05 | disposition home or self-care (01) ==
LOC: HO.HMGCLDS 10:04
PROVIDERS: PCP Internal Medicine; Visit Provider Nurse Practitioner Family
DX: M19.042 Primary osteoarthritis, left hand (principal); M19.041 Primary osteoarthritis, right hand; M05.9 Rheumatoid arthritis with rheumatoid factor, unspecified
CPT/HCPCS: 36415; 82565; 84450; 84460; 85025; 85652; 86140

== ENCOUNTER → 2022-07-12 12:38 | Outpatient (BNVA) | payer MEDICARE, OTHER, SELFPAY | PROVIDERS: PCP Internal Medicine; Visit Provider Nurse Practitioner Family | DX: M05.9 Rheumatoid arthritis with rheumatoid factor, unspecified (principal); M19.041 Primary osteoarthritis, right hand; M19.042 Primary osteoarthritis, left hand | CPT/HCPCS: 99212 ==

== ENCOUNTER 2022-09-12 13:49 | Outpatient (AMB) | payer MEDICARE, SELFPAY ==
--- NOTE | 2022-09-12 13:58 | MHC.OFFVIS ---
Intake Intake Visit Reasons: 2m follow up Intake Note: Patient is present for Follow up Urology Med: Tadalafil, Sildenafil Antibiotic Allergy: None Blood Thinner: None Allergies No Known Allergies Allergy (Verified 01/10/23 09:57) Medication List - Last Reconciled 09/12/22 by Thiago Gross MD amlodipine mg PO [id number]-hlvbdwajtngwx-duxz 50-325-40 mg tabs PO DAILY PRN celecoxib (Celebrex) 200 mg PO BID sildenafil 100 mg PO DAILY PRN 30 days tadalafil 5 mg PO DAILY 90 days HPI HPI Comments History of Present Illness Details Osmar is a pleasant male. He is a patient of Dr. Butcher. He is seen for the following urologic reasons - lower urinary tract symptoms - erectile dysfunction Follow-up regarding urinary control and erectile dysfunction Lower urinary tract symptoms Progressive Nocturia x2 No prior medications Assisted by daily tadalafil Erectile dysfunction Minimal responsiveness to 100 mg sildenafil on demand Has not tried daily medications Background arthritis on methotrexate Cardiovascular risk factors high blood pressure on medications Trial daily tadalafil with on demand sildenafil - refill prescription [facility] Medical History (Updated 01/10/23 @ 10:45 by Juvencio Carbajal MD) Elevated PSA Migraine Family History Mother Psoriatic arthritis Father Rheumatoid arthritis Social History Alcohol intake: current Alcohol intake frequency: holidays/special occasions only Patient Tobacco Use Status: Current everyday Tobacco user Tobacco use type: Cigarette Cigarettes Per Day: 6 Years Smoked: 50 Review of Systems Const Denies chills and Denies fever(s) Card Reports no additional complaints and Denies syncope Resp Denies cough GI Denies abdominal pain and Denies heartburn Reports as per HPI and Denies change in libido Neuro Denies syncope Psych Denies change in libido Endo Denies change in libido Physical Exam Const General: cooperative, healthy appearing, comfortable and no acute distress Orientation/consciousness: patient oriented x3 HEENT Face and sinus: Yes normal facial exam Mouth: moist mucous membranes Neck Neck: Yes normal visual inspection, Yes full ROM and Yes trachea midline Chest Chest palpation & inspection: normal inspection of the chest Resp Effort & Inspection: normal respiratory effort, able to speak in complete sentences and no respiratory distress GI Inspection: Yes normal to inspection Back/Spine/Pelvis Cervical Spine: normal cervical lordosis Thoracic/Lumbar Spine: thoracic and lumbar spine normal to inspection Skin General skin exam: no rashes or lesions noted Neuro General: patient oriented x3, gait normal, tone normal and moves all extremities Extrem General: Yes normal to inspection and Yes capillary refill normal Assessment & Plan Assessment & Plan (1) BPH loc w urin obs/LUTS: Code(s): N40.1 - Benign prostatic hyperplasia with lower urinary tract symptoms Plan Six month review Patient Instructions: Imaging studies, laboratory and physical exam results were discussed and reviewed in detail. No major barriers to patient understanding were identified. An opportunity to ask questions regarding the treatment plan was provided. All questions were answered. The patient expressed understanding and agreement with the above treatment plan. The patient is aware they should contact our office by phone for worsening of their current condition or the appearance of new urologic symptoms. Compliance is encouraged with any medications and followup testing that is ordered. It is a privilege to participate in the urologic care of your patient. If you have any questions or concerns regarding treatment for the above conditions, or other urologic issues, please do not hesitate to contact me. The office telephone contact is [phone]. This note is constructed using voice recognition software. While every effort has been made to ensure accuracy miller supervisor errors may have been included. Yours sincerely, Dr Thiago Gross MD, [facility] - Urology Providers of Expert, Compassionate Care for the Genitourinary System Coding Level of Care Code Est Pt Level 3 (75482) Diagnoses BPH loc w urin obs/LUTS N40.1
== END 2022-09-12 14:59 | disposition home or self-care (01) ==
LOC: HO.HUSH 13:49
PROVIDERS: PCP Internal Medicine; Visit Provider Urology
DX: N40.1 Benign prostatic hyperplasia with lower urinary tract symptoms (principal)
CPT/HCPCS: 99213

== ENCOUNTER → 2022-09-12 13:49 | Outpatient (BNVA) | payer MEDICARE, OTHER, SELFPAY | PROVIDERS: PCP Internal Medicine; Visit Provider Urology | DX: N40.1 Benign prostatic hyperplasia with lower urinary tract symptoms (principal) | CPT/HCPCS: 99212 ==

== ENCOUNTER → 2022-10-04 07:35 | Outpatient (BNVA) | payer MEDICARE, OTHER, SELFPAY | PROVIDERS: PCP Internal Medicine; Visit Provider Nurse Practitioner Family | DX: M05.9 Rheumatoid arthritis with rheumatoid factor, unspecified (principal); M19.041 Primary osteoarthritis, right hand; M19.042 Primary osteoarthritis, left hand; M25.551 Pain in right hip | CPT/HCPCS: 36415; 82565; 84450; 84460; 85025; 85652; 86140; 99212 ==

== ENCOUNTER 2022-10-04 08:50 | Outpatient (REF) | payer MEDICARE, SELFPAY ==
[2022-10-04 10:22] LABS: MANUAL DIFF FLAG NO
[2022-10-04 10:33] LABS: Basophils Absolute Auto 0.1 X10*3/uL (0.0-0.2); Basophils Percent Auto 0.6 % (0-2); Eosinophils Absolute Auto 0.3 X10*3/uL (0.0-0.4); Eosinophils Percent Auto 3.2 % (0-4); Hematocrit 44.5 % (42.0-52.0); Hemoglobin 14.4 g/dl (14.0-18.0); Imm Gran Abs Auto 0.02 X10*3/uL (0.00-0.03); Imm Gran Pct Auto 0.2 % (0.0-0.4); Lymphocytes Absolute Auto 3.8 X10*3/uL (1.2-4.9); Mean Corpuscular HGB Conc 32.4 g/dl (31.0-36.0); Mean Corpuscular Hemoglobin 29.7 pg (27.0-33.0); Mean Corpuscular Volume 91.8 fL (80.0-98.0); Mean Platelet Volume 11.1 fL (9.4-12.4); Monocytes Absolute Auto 0.5 X10*3/uL (0.1-1.2); Monocytes Percent Auto 5.4 % (2-11); Neutrophils Absolute Auto 4.4 x10*3/uL (2.0-8.3); Neutrophils Percent Auto 48.6 % (45-73); Platelet Count 205 X10*3/uL (160-400); Red Blood Count 4.85 X10*6/uL (4.60-5.80); Red Cell Distribution Width 13.5 % (11.0-16.0); White Blood Count 9.1 X10*3/uL (4.8-10.8)
[2022-10-04 11:07] LABS: Alanine Aminotransferase 25 U/L (0-40); Aspartate Amino Transferase 19 U/L (5-37); Estimated Glomerular Filt Rate > 60
[2022-10-04 11:25] LABS: Erythrocyte Sedimentation Rate 7 MM/HR (0-15)
== END 2022-10-04 08:51 | disposition home or self-care (01) ==
LOC: HO.10HDL 08:50
PROVIDERS: Visit Provider Nurse Practitioner Family
DX: Z13.89 Encounter for screening for other disorder (principal)
CPT/HCPCS: 36415; 82565; 84450; 84460; 85025; 85652; 86140

== ENCOUNTER 2023-01-10 09:33 | Outpatient (AMB) | payer MEDICARE, SELFPAY ==
[2023-01-10 09:53] VITALS: BP 138/70; PULSE 93; TEMP 36.8; O2SAT 96; BMI 27.8
--- NOTE | 2023-01-10 09:53 | MHC.OFFVIS ---
Intake Vital Signs 01/10/23 09:53 Height 5 ft 10 in Weight 194 lb 0.108 oz BMI 27.8 BP 138/70 Blood Pressure Location Rt brachial Position Sitting Pulse 93 Pulse Source Pulse Oximeter Temp 98.2 F Temp Source Skin Pulse Oximetry (%) 96 Intake Visit Reasons: Rheumatoid arthritis Intake Note: Pt seen today for RA follow up. 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 He was last evaluated by Emily Rangel 09/2022. Patient states that he has seen rheumatologists for more than 20 years. States that his father, grandfather, great grandfather and great grandfather sister had bad rheumatoid arthritis. His father was on gold treatments. Patient took numerous NSAIDs over the years without relief. He was also started on hydroxychloroquine for about a year and it was ineffective, methotrexate was tried for about 7 months, was ineffective and caused side effects. Patient continues to have pain and stiffness in both hands. Pain is generally worse with overuse. He has morning stiffness of his has lasting 30 minutes to 45 minutes improved with warm water. He also has bilateral knee pain, worse on the left, intermittently his left knee jamison. [facility] Medical History (Updated 01/10/23 @ 10:45 by Juvencio Carbajal MD) Elevated PSA Migraine Family History Mother Psoriatic arthritis Father Rheumatoid arthritis Social History Alcohol intake: current Alcohol intake frequency: holidays/special occasions only Patient Tobacco Use Status: Current everyday Tobacco user Tobacco use type: Cigarette Cigarettes Per Day: 6 Years Smoked: 50 Review of Systems [facility] Reports arthralgias and Reports stiffness Physical Exam Vital Signs: Last Vital Signs Temp 98.2 F 01/10/23 09:53 Pulse 93 01/10/23 09:53 BP 138/70 01/10/23 09:53 Pulse Ox 96 01/10/23 09:53 BMI result Body Mass Index 27.8 Const General: cooperative, healthy appearing and comfortable Nutritional Appearance: overweight Orientation/consciousness: patient oriented x3 Limitations: no limitations HEENT Head: Yes normocephalic and Yes atraumatic Mouth: moist mucous membranes Resp Effort & Inspection: normal respiratory effort and able to speak in complete sentences Auscultation: clear to auscultation bilaterally Cardio Rate: regular rate Rhythm: regular rhythm Neuro General: patient oriented x3 Extrem Other: Right wrist tenderness to palpation and pain with full flexion and extension Diffuse MCP and PIP tenderness. You Sharri's nodes Two hundred ten years deformity of right 2nd and 3rd fingers No DIP tenderness Left wrist tenderness and pain with full flexion and extension Few MCP tenderness. Positive MCP squeeze test. Few PIP tenderness. No DIP tenderness Normal range of motion of both elbows and shoulders Bilateral knee crepitus No MTP tenderness except for the left foot bunion Negative MTP squeeze test Assessment & Plan Assessment & Plan (1) Seropositive rheumatoid arthritis: Comment: +RF -ve CCP Plaquenil November 2020- September 2021- patient self stopped Methotrexate August 2021 to May 2022 discontinued and started on Celebrex for osteoarthritis. Code(s): M05.9 - Rheumatoid arthritis with rheumatoid factor, unspecified Plan: This is a 67-year-old male with seropositive RA who presents for follow-up. Patient has seen numerous rheumatologists over the years and was tried on multiple NSAIDs without any improvement. He also failed methotrexate and Plaquenil. Discussed risks and benefits of TNF inhibitors. Patient agreed to proceed. Will start prior authorization for [facility] before next visit in 3 minutes (2) Knee pain, bilateral: Code(s): M25.561 - Pain in right knee; M25.562 - Pain in left knee Qualifiers: Chronicity: chronic Qualified Code(s): M25.561 - Pain in right knee; M25.562 - Pain in left knee; G89.29 - Other chronic pain Plan: Bilateral knee pain, worse on the left, intermittent buckling of knees, worse on the left. Will consider ordering an MRI to evaluate for internal derangement next visit Plan I spent 26 minutes reviewing patient's chart, evaluating patient, ordering diagnostic workup, counseling patient and documenting in the chart Orders: Orders Comprehensive Met. Panel 3 Months M05.9 - Rheumatoid arthritis with rheumatoid factor, unspecified C Reactive Protein 3 Months M05.9 - Rheumatoid arthritis with rheumatoid factor, unspecified Complete Blood Count Auto Diff 3 Months M05.9 - Rheumatoid arthritis with rheumatoid factor, unspecified Erythrocyte Sedimentation Rate 3 Months M05.9 - Rheumatoid arthritis with rheumatoid factor, unspecified Hepatitis A,B,C Profile 3 Months Z11.59 - Encounter for screening for other viral diseases T Spot TB 3 Months Z11.7 - Encounter for testing for latent tuberculosis infection Coding Level of Care Code Est Pt Level 4 (63028) Diagnoses Seropositive rheumatoid arthritis M05.9 Knee pain, bilateral M25.561; M25.562; G89.29 Chronicity: chronic
== END 2023-01-10 10:37 | disposition home or self-care (01) ==
PROVIDERS: PCP Internal Medicine; Visit Provider Student in an Organized Health Care Education/Training Program
DX: M05.79 Rheumatoid arthritis with rheumatoid factor of multiple sites without organ or systems involvement (principal); M25.561 Pain in right knee; M25.562 Pain in left knee; G89.29 Other chronic pain
CPT/HCPCS: 99214

== ENCOUNTER → 2023-01-10 09:33 | Outpatient (BNVA) | payer MEDICARE, OTHER, SELFPAY | PROVIDERS: PCP Internal Medicine; Visit Provider Student in an Organized Health Care Education/Training Program | DX: M05.9 Rheumatoid arthritis with rheumatoid factor, unspecified (principal); G89.29 Other chronic pain; M25.562 Pain in left knee; M25.561 Pain in right knee | CPT/HCPCS: 99212 ==

== ENCOUNTER 2023-03-14 10:31 | Outpatient (AMB) | payer MEDICARE, SELFPAY ==
--- NOTE | 2023-03-14 10:33 | MHC.OFFVIS ---
Intake Intake Visit Reasons: 6m follow up Intake Note: Patient is Present for Telephone Follow Up For Urology Med: Sildenafil, Tadalafil Antibiotic Allergy: None Blood Thinner:None Pharamcy: [employer] Allergies No Known Allergies Allergy (Verified 03/14/23 10:33) Medication List - Last Reconciled 03/14/23 by Thiago Gross MD acetaminophen ER (Tylenol 8 Hour) 650 mg PO QAM amlodipine 5 mg PO DAILY avdeixqjrk-ymiqllspzdgps-mhwk 50-325-40 mg tabs PO DAILY PRN etanercept (Enbrel SureClick) 50 mg subcut QWEEK sildenafil 100 mg PO DAILY PRN 30 days tadalafil 5 mg PO DAILY 90 days HPI HPI Comments History of Present Illness Details Osmar is a pleasant male. He is a patient of Dr. Butcher. He is seen for the following urologic reasons - lower urinary tract symptoms - erectile dysfunction Telemedicine Evaluation 15 min Consultation [employer] Fred[employer] Video attempted Follow-up regarding urinary control and erectile dysfunction Stable Refill provided 6 month follow-up PSA Lower urinary tract symptoms Progressive Nocturia x2 down from 4 No prior medications Assisted by daily tadalafil Erectile dysfunction Minimal responsiveness to 100 mg sildenafil on demand Has not tried daily medications Background arthritis on methotrexate Cardiovascular risk factors high blood pressure on medications Sufficient Trial daily tadalafil with on demand sildenafil - refill prescription [facility] Medical History (Updated 03/14/23 @ 11:11 by Thiago Gross MD) Migraine Elevated PSA Family History Mother Psoriatic arthritis Father Rheumatoid arthritis Social History Alcohol intake: current Alcohol intake frequency: holidays/special occasions only Patient Tobacco Use Status: Current everyday Tobacco user Tobacco use type: Cigarette Cigarettes Per Day: 6 Years Smoked: 50 Review of Systems Const All systems reviewed & are unremarkable except as noted in HPI and below Reports no additional complaints Resp Reports no additional complaints GI Reports no additional complaints Reports as per HPI Musc Reports no additional complaints Physical Exam Telemedicine evaluation Appropriate responses Regular breathing rate and rhythm HEENT Head: Yes normal to inspection Ears: hearing grossly normal bilaterally Eyes General: appearance normal, both eyes and all related structures Neck Neck: Yes normal visual inspection Chest Chest palpation & inspection: normal inspection of the chest Resp Effort & Inspection: normal respiratory effort and able to speak in complete sentences Assessment & Plan Assessment & Plan (1) BPH loc w urin obs/LUTS: Code(s): N40.1 - Benign prostatic hyperplasia with lower urinary tract symptoms (2) Erectile dysfunction: Code(s): N52.9 - Male erectile dysfunction, unspecified Qualifiers: Erectile dysfunction type: vasculogenic Vasculogenic erectile dysfunction type: due to arterial insufficiency Qualified Code(s): N52.01 - Erectile dysfunction due to arterial insufficiency Plan Six month follow-up PSA Orders: Orders Prostate Specific Antigen 6 Months N40.1 - Benign prostatic hyperplasia with lower urinary tract symptoms Medications: Refilled tadalafil Daily medication 5 mg PO DAILY 90 tabs 1RF BPH 90 days N40.1 - Benign prostatic hyperplasia with lower urinary tract symptoms, N52.9 - Male erectile dysfunction, unspecified Patient Instructions: Imaging studies, laboratory and physical exam results were discussed and reviewed in detail. No major barriers to patient understanding were identified. An opportunity to ask questions regarding the treatment plan was provided. All questions were answered. The patient expressed understanding and agreement with the above treatment plan. The patient is aware they should contact our office by phone for worsening of their current condition or the appearance of new urologic symptoms. Compliance is encouraged with any medications and followup testing that is ordered. It is a privilege to participate in the urologic care of your patient. If you have any questions or concerns regarding treatment for the above conditions, or other urologic issues, please do not hesitate to contact me. The office telephone contact is [phone]. This note is constructed using voice recognition software. While every effort has been made to ensure accuracy plant associate errors may have been included. Yours sincerely, Dr Thiago Gross MD, [facility] - Urology Providers of Expert, Compassionate Care for the Genitourinary System Telehealth Telehealth Location of provider rendering services: practice address Location of patient: address on file Patient Identification confirmed using: Name, : Yes Telehealth method: video Patient verbally consented to treatment: Yes Patient verbally consented to billing insurance company: Yes Patient informed of any privacy concerns related to visit: Yes Coding Level of Care Code Tele Est Pt Level 3 (31698) Diagnoses BPH loc w urin obs/LUTS N40.1 Erectile dysfunction due to arterial insufficiency N52.01 Erectile dysfunction type: vasculogenic Vasculogenic erectile dysfunction type: due to arterial insufficiency
== END 2023-03-14 11:14 | disposition home or self-care (01) ==
LOC: HO.HUSH 10:31
PROVIDERS: PCP Internal Medicine; Visit Provider Urology
DX: N40.1 Benign prostatic hyperplasia with lower urinary tract symptoms (principal); N52.01 Erectile dysfunction due to arterial insufficiency
CPT/HCPCS: 99213

== ENCOUNTER → 2023-03-14 10:31 | Outpatient (BNVA) | payer MEDICARE, SELFPAY | PROVIDERS: PCP Internal Medicine; Visit Provider Urology ==

== ENCOUNTER 2023-04-03 08:53 | Outpatient (REF) | payer MEDICARE, MEDICAID, SELFPAY ==
[2023-04-03 11:21] LABS: Basophils Absolute Auto 0.1 X10*3/uL (0.0-0.2); Basophils Percent Auto 0.6 % (0-2); Eosinophils Absolute Auto 0.3 X10*3/uL (0.0-0.4); Hematocrit 47.5 % (42.0-52.0); Hemoglobin 15.6 g/dl (14.0-18.0); Imm Gran Abs Auto 0.03 X10*3/uL (0.00-0.03); Imm Gran Pct Auto 0.3 % (0.0-0.4); Lymphocytes Absolute Auto 5.3 X10*3/uL (1.2-4.9); Lymphocytes Percent Auto 51.8 % (20-40); MANUAL DIFF FLAG SCAN; Mean Corpuscular HGB Conc 32.8 g/dl (31.0-36.0); Mean Corpuscular Hemoglobin 30.4 pg (27.0-33.0); Mean Corpuscular Volume 92.4 fL (80.0-98.0); Monocytes Absolute Auto 0.6 X10*3/uL (0.1-1.2); Neutrophils Absolute Auto 3.9 x10*3/uL (2.0-8.3); Neutrophils Percent Auto 38.3 % (45-73); Platelet Count 192 X10*3/uL (160-400); Red Blood Count 5.14 X10*6/uL (4.60-5.80); Red Cell Distribution Width 14.1 % (11.0-16.0); SCAN SMEAR FLAG 1; White Blood Count 10.1 X10*3/uL (4.8-10.8)
[2023-04-03 11:43] LABS: Alanine Aminotransferase 22 U/L (0-40); Albumin Level 4.4 g/dL (3.5-5.0); Alkaline Phosphatase 84 U/L (39-117); Anion Gap 10 (12-20); Aspartate Amino Transferase 15 U/L (5-37); Bilirubin Total 0.5 mg/dL (0.0-1.0); Blood Urea Nitrogen 23 mg/dL (9-16); C Reactive Protein 0.41 mg/dL (< or = 0.50); Carbon Dioxide 28 mmol/L (22-29); Chloride 107 mmol/L (96-108); Estimated Glomerular Filt Rate > 60; Glucose Random 112 mg/dL (60-115); Potassium 3.8 mmol/L (3.3-5.1); Sodium 141 mmol/L (135-145); Total Protein 7.5 g/dL (6.5-8.0)
[2023-04-03 11:54] LABS: SLIDE REVIEW VERIFIED
[2023-04-03 11:59] LABS: HBc Num1 0.19 S/CO (0.00-0.79); HBsAGNum1 0.32 S/CO (0.00-0.99); Hepatitis A Antibody IgM 0.31 Index (0-0.79); Hepatitis B Core Antibody Nonreactive (Nonreactive); Hepatitis B Surface Antigen Negative (Negative); ~HepC Num1 0.15 S/CO (0.00-0.79); ~Hepatitis A Antibody IgM Nonreactive (Nonreactive); ~Hepatitis B Surface Antibody NONREACTIVE (Nonreactive); ~Hepatitis C Antibody Nonreactive (Nonreactive)
[2023-04-03 12:10] LABS: Erythrocyte Sedimentation Rate 7 MM/HR (0-15)
[2023-04-05 21:03] LABS: TS Negative Control Passed; TS Panel A 4; TS Panel B 4; TS Positive Control Passed; TSpotTB Negative (Negative)
== END 2023-04-03 08:54 | disposition home or self-care (01) ==
LOC: HO.HMGCLDS 08:53
PROVIDERS: Absent Provider Urology; PCP Internal Medicine; Visit Provider Student in an Organized Health Care Education/Training Program
DX: M05.9 Rheumatoid arthritis with rheumatoid factor, unspecified (principal); Z11.59 Encounter for screening for other viral diseases; Z72.89 Other problems related to lifestyle; Z11.7 Encounter for testing for latent tuberculosis infection
CPT/HCPCS: 36415; 80053; 85025; 85652; 86140; 86481; 86704; 86706; 86709; 86803; 87340

== ENCOUNTER 2023-04-11 10:35 | Outpatient (AMB) | payer MEDICARE, SELFPAY ==
[2023-04-11 10:43] VITALS: BP 112/64; PULSE 74; TEMP 36.1; O2SAT 96; BMI 28.0
--- NOTE | 2023-04-11 10:43 | A.OFFVIS_ITS ---
Intake Vital Signs 04/11/23 10:43 Height 5 ft 10 in Weight 195 lb 5.273 oz BMI 28.0 BP 112/64 Blood Pressure Location Rt brachial Position Sitting Pulse 74 Pulse Source Pulse Oximeter Temp 96.9 F Temp Source Skin Pulse Oximetry (%) 96 Oxygen Delivery Method Room Air Intake Visit Reasons: RA Intake Note: Pt last seen 01/10/23, presents today for follow up and test results. Using Enbrel, tolerating it well. Orthopedic Brace Maker Required: No Accompanied by: Self / Same As Patient Allergies No Known Allergies Allergy (Verified 04/11/23 10:47) Medication List - Last Reconciled 04/11/23 by Juvencio Carbajal MD acetaminophen ER (Tylenol 8 Hour) 650 mg PO QAM amlodipine 5 mg PO DAILY apfwfbqhhz-emlrlkvkxuluf-ieet 50-325-40 mg tabs PO DAILY PRN etanercept (Enbrel SureClick) 50 mg subcut QWEEK sildenafil 100 mg PO DAILY PRN 30 days tadalafil 5 mg PO DAILY 90 days HPI HPI Comments History of Present Illness Details This is a 67-year-old male who presents for evaluation of seropositive RA. Patient started the Enbrel 6 weeks ago. Well tolerated. States that some days are the same are some days are better. States that he continues to have morning stiffness of his hands as well as pain in his fingers and knuckles. In the morning he notices swelling of his fingers. He Initial history: He was last evaluated by Emily Rangel 09/2022. Patient states that he has seen rheumatologists for more than 20 years. States that his father, grandfather, great grandfather and great grandfather sister had bad rheumatoid arthritis. His father was on gold treatments. Patient took numerous NSAIDs over the years without relief. He was also started on hydroxychloroquine for about a year and it was ineffective, methotrexate was tried for about 7 months, was ineffective and caused side effects. Patient continues to have pain and stiffness in both hands. Pain is generally worse with overuse. He has morning stiffness of his has lasting 30 minutes to 45 minutes improved with warm water. He also has bilateral knee pain, worse on the left, intermittently his left knee jamison. [facility] Medical History Migraine Elevated PSA Family History Mother Psoriatic arthritis Father Rheumatoid arthritis Social History Alcohol intake: current Alcohol intake frequency: holidays/special occasions only Patient Tobacco Use Status: Current everyday Tobacco user Tobacco use type: Cigarette Cigarettes Per Day: 6 Years Smoked: 50 Review of Systems [facility] [place] [facility] Reports arthralgias, Reports joint swelling and Reports stiffness Physical Exam Vital Signs: Last Vital Signs Temp 96.9 F 04/11/23 10:43 Pulse 74 04/11/23 10:43 BP 112/64 04/11/23 10:43 Pulse Ox 96 04/11/23 10:43 Oxygen Delivery Method Room Air 04/11/23 10:43 BMI result Body Mass Index 28.0 Const General: cooperative, healthy appearing and comfortable Nutritional Appearance: overweight Orientation/consciousness: patient oriented x3 Limitations: no limitations HEENT Head: Yes normocephalic and Yes atraumatic Resp Effort & Inspection: normal respiratory effort and able to speak in complete sentences Neuro General: patient oriented x3 Extrem Other: Right wrist tenderness to palpation and pain with full flexion and extension Diffuse MCP and PIP tenderness. 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 Positive MCP squeeze test. Few PIP tenderness. No DIP tenderness Normal range of motion of both elbows and shoulders Bilateral knee crepitus No MTP tenderness except for the left foot bunion Negative MTP squeeze test Assessment & Plan Assessment & Plan (1) Seropositive rheumatoid arthritis: Comment: +RF -ve CCP Plaquenil November 2020- September 2021- patient self stopped Methotrexate August 2021 to May 2022 discontinued and started on Celebrex for osteoarthritis. Enbrel 02/2023 partially effective Code(s): M05.9 - Rheumatoid arthritis with rheumatoid factor, unspecified Plan: This is a 67-year-old male with seropositive RA who presents for follow-up. Patient started Enbrel 6 weeks ago. States that some days are better on some days are worse. Continue Enbrel 50 mg once weekly and will reassess next visit. Follow-up in 3 months Plan I spent 16 minutes reviewing patient's chart, evaluating patient, counseling patient and documenting in the chart Coding Level of Care Code Est Pt Level 4 (65948) Diagnoses Seropositive rheumatoid arthritis M05.9
== END 2023-04-11 11:20 | disposition home or self-care (01) ==
PROVIDERS: PCP Internal Medicine; Visit Provider Student in an Organized Health Care Education/Training Program
DX: M05.79 Rheumatoid arthritis with rheumatoid factor of multiple sites without organ or systems involvement (principal)
CPT/HCPCS: 99214

== ENCOUNTER → 2023-04-11 10:35 | Outpatient (BNVA) | payer MEDICARE, SELFPAY | PROVIDERS: PCP Internal Medicine; Visit Provider Student in an Organized Health Care Education/Training Program | DX: M05.9 Rheumatoid arthritis with rheumatoid factor, unspecified (principal) | CPT/HCPCS: 99212 ==

== ENCOUNTER 2023-07-16 10:32 | Outpatient (AMB) | payer MEDICARE, MEDICAID, SELFPAY ==
--- NOTE | 2023-07-16 10:39 | MHC.OFFVIS ---
Intake Vital Signs 07/16/23 10:40 Height 5 ft 10 in Weight 201 lb 4.513 oz BMI 28.9 BP 132/76 Blood Pressure Location Rt brachial Position Sitting Pulse 80 Pulse Source Pulse Oximeter Temp Source Skin Pulse Oximetry (%) 95 Oxygen Delivery Method Room Air Intake Visit Reasons: RA Intake Note: Patient last seen 04/11/23 presents today for follow up. Same pains just geting worse. Physical Therapy Technician Required: No Accompanied by: Self / Same As Patient Allergies No Known Allergies Allergy (Verified 07/16/23 10:44) Medication List - Last Reconciled 07/16/23 by Juvencio Carbajal MD acetaminophen ER (Tylenol 8 Hour) 650 mg PO QAM amlodipine 5 mg PO DAILY irhgltkxsh-ohmmucwwuaxho-qhwn 50-325-40 mg tabs PO DAILY PRN sildenafil 100 mg PO DAILY PRN 30 days tadalafil 5 mg PO DAILY 90 days HPI HPI Comments History of Present Illness Details 68-year-old male with seropositive RA returns for follow-up. He has been on Enbrel for 5-6 months now. Has not felt any side effects. Has not felt any better in terms of his joint pain. He has felt a little bit worse. He has been having some cracking of his fingers and his knees. Initial history: He was last evaluated by Emily Rangel 09/2022. Patient states that he has seen rheumatologists for more than 20 years. States that his father, grandfather, great grandfather and great grandfather sister had bad rheumatoid arthritis. His father was on gold treatments. Patient took numerous NSAIDs over the years without relief. He was also started on hydroxychloroquine for about a year and it was ineffective, methotrexate was tried for about 7 months, was ineffective and caused side effects. Patient continues to have pain and stiffness in both hands. Pain is generally worse with overuse. He has morning stiffness of his has lasting 30 minutes to 45 minutes improved with warm water. He also has bilateral knee pain, worse on the left, intermittently his left knee jamison. [facility] Medical History Migraine Elevated PSA Family History Mother Psoriatic arthritis Father Rheumatoid arthritis Social History Alcohol intake: current Alcohol intake frequency: holidays/special occasions only Patient Tobacco Use Status: Current everyday Tobacco user Tobacco use type: Cigarette Cigarettes Per Day: 6 Years Smoked: 50 Review of Systems [facility] Reports arthralgias and Reports stiffness Physical Exam Vital Signs: Last Vital Signs Pulse 80 07/16/23 10:40 BP 132/76 07/16/23 10:40 Pulse Ox 95 07/16/23 10:40 Oxygen Delivery Method Room Air 07/16/23 10:40 BMI result Body Mass Index 28.9 Const General: cooperative, healthy appearing and comfortable Nutritional Appearance: overweight Orientation/consciousness: patient oriented x3 Limitations: no limitations HEENT Head: Yes normocephalic and Yes atraumatic Resp Effort & Inspection: normal respiratory effort and able to speak in complete sentences Neuro General: patient oriented x3 Extrem Other: Right wrist tenderness to palpation and pain with full flexion and extension Diffuse MCP and PIP tenderness. 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 Positive MCP squeeze test. Few PIP tenderness. No DIP tenderness Normal range of motion of both elbows and shoulders Bilateral knee crepitus No MTP tenderness except for the left foot bunion Negative MTP squeeze test Assessment & Plan Assessment & Plan (1) Seropositive rheumatoid arthritis: Comment: +RF -ve CCP Plaquenil November 2020- September 2021- patient self stopped Methotrexate August 2021 to May 2022 discontinued and started on Celebrex for osteoarthritis. Enbrel 02/2023 inefeective DC 07/2022 Code(s): M05.9 - Rheumatoid arthritis with rheumatoid factor, unspecified Plan: This is a 68-year-old male with seropositive RA who presents for follow-up. Patient has been on Enbrel regularly for the last 5-6 months. With no side effects but with no benefit. At this point, patient has tried 2 CsDMARDs and 1 bDMARD without any improvement. His symptoms at this point are likely related to degenerative arthritis. 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 Continues to have bilateral wrist tenderness to palpation and pain with range of motion, bilateral tender MCPs and PIPs with very minimal DIP tenderness. There are no swollen joints however. Patient has a strong history of RA in the family. Likely patient had RA activity at some point but his disease is no longer active and his symptoms are degenerative in nature at this point Will discontinue Enbrel for now. Advised patient to call the clinic if he develops any swollen joints. There is a firm nodule on the ulnar aspect of right thumb, this is fairly new. It can be a rheumatoid nodule. It is minimally symptomatic. Patient is not interested in a biopsy at this point Follow-up as needed Plan I spent 16 minutes reviewing patient's chart, evaluating patient, counseling patient and documenting in the chart Coding Level of Care Code Est Pt Level 3 (19136) Diagnoses Seropositive rheumatoid arthritis M05.9
[2023-07-16 10:40] VITALS: BP 132/76; PULSE 80; O2SAT 95; BMI 28.9
== END 2023-07-16 11:10 | disposition home or self-care (01) ==
PROVIDERS: PCP Internal Medicine; Visit Provider Student in an Organized Health Care Education/Training Program
DX: M05.79 Rheumatoid arthritis with rheumatoid factor of multiple sites without organ or systems involvement (principal)
CPT/HCPCS: 99213

== ENCOUNTER → 2023-07-16 10:32 | Outpatient (BNVA) | payer MEDICARE, MEDICAID, SELFPAY | PROVIDERS: PCP Internal Medicine; Visit Provider Student in an Organized Health Care Education/Training Program | DX: M05.9 Rheumatoid arthritis with rheumatoid factor, unspecified (principal) | CPT/HCPCS: 99212 ==

== ENCOUNTER 2023-09-07 08:34 | Outpatient (REF) | payer MEDICARE, MEDICAID, SELFPAY ==
[2023-09-07 11:03] LABS: Prostate Specific Antigen 6.62 ng/mL (<0.05-4.0)
== END 2023-09-07 08:35 | disposition home or self-care (01) ==
LOC: HO.HMGCLDS 08:34
PROVIDERS: PCP Internal Medicine; Visit Provider Urology
DX: Z12.5 Encounter for screening for malignant neoplasm of prostate (principal); N40.1 Benign prostatic hyperplasia with lower urinary tract symptoms
CPT/HCPCS: 36415; 84153

== ENCOUNTER 2023-09-12 13:39 | Outpatient (AMB) | payer MEDICARE, MEDICAID, SELFPAY ==
--- NOTE | 2023-09-12 14:00 | A.OFFVIS_ITS ---
Intake Visit Reasons: 6M PSA(set)Confirmed Intake Note: Patient is Present for Follow Up Urology Medication: Tadalafil, Sildenafil Antibiotic Allergies: None Blood Thinners: None Allergies No Known Allergies Allergy (Verified 09/12/23 14:00) Medication List - Last Reconciled 09/12/23 by Thiago Gross MD acetaminophen ER (Tylenol 8 Hour) 650 mg PO QAM amlodipine 5 mg PO DAILY fszjkfvatv-ufkzbelmfpcgn-byle 50-325-40 mg tabs PO DAILY PRN finasteride 5 mg PO DAILY 90 days sildenafil 100 mg PO DAILY PRN 30 days tadalafil 5 mg PO DAILY 90 days HPI Comments Details: Osmar is a pleasant male. He is a patient of Dr. Butcher. He is seen for the following urologic reasons - lower urinary tract symptoms - erectile dysfunction Six-month follow-up Follow-up regarding urinary control and erectile dysfunction Stable Refill provided 6 month follow-up PSA Lower urinary tract symptoms Progressive Nocturia x2 down from 4 No prior medications Assisted by daily tadalafil Erectile dysfunction Minimal responsiveness to 100 mg sildenafil on demand Has not tried daily medications Background arthritis on methotrexate Cardiovascular risk factors high blood pressure on medications PSA 07/31 4.1, 09/04 6.6 Trial daily tadalafil with on demand sildenafil - refill prescription [facility] Medical History Migraine Elevated PSA Family History Mother Psoriatic arthritis Father Rheumatoid arthritis Social History Alcohol intake: current Alcohol intake frequency: holidays/special occasions only Patient Tobacco Use Status: Current everyday Tobacco user Tobacco use type: Cigarette Cigarettes Per Day: 6 Years Smoked: 50 Review of Systems Const Denies chills and Denies fever(s) Card Reports no additional complaints and Denies syncope Resp Denies cough GI Denies abdominal pain and Denies heartburn Reports as per HPI and Denies change in libido Neuro Denies syncope Psych Denies change in libido Endo Denies change in libido Physical Exam Const General: cooperative, healthy appearing, comfortable and no acute distress Orientation/consciousness: patient oriented x3 HEENT Face and sinus: Yes normal facial exam Mouth: moist mucous membranes Neck Neck: Yes normal visual inspection, Yes full ROM and Yes trachea midline Chest Chest palpation & inspection: normal inspection of the chest Resp Effort & Inspection: normal respiratory effort, able to speak in complete sentences and no respiratory distress GI Inspection: Yes normal to inspection Back/Spine/Pelvis Cervical Spine: normal cervical lordosis Thoracic/Lumbar Spine: thoracic and lumbar spine normal to inspection Skin General skin exam: no rashes or lesions noted Neuro General: patient oriented x3, gait normal, tone normal and moves all extremities Extrem General: Yes normal to inspection and Yes capillary refill normal Assessment & Plan Assessment & Plan (1) Elevated PSA: Code(s): R97.20 - Elevated prostate specific antigen [PSA] Category: Medical (2) Erectile dysfunction: Code(s): N52.9 - Male erectile dysfunction, unspecified Category: Medical Qualifiers: Erectile dysfunction type: vasculogenic Vasculogenic erectile dysfunction type: due to arterial insufficiency Qualified Code(s): N52.01 - Erectile dysfunction due to arterial insufficiency (3) BPH loc w urin obs/LUTS: Code(s): N40.1 - Benign prostatic hyperplasia with lower urinary tract symptoms Category: Medical Plan Six-month follow-up PSA Continue finasteride Orders: Orders PSA,Total (Free>4and<10) 6 Months R97.20 - Elevated prostate specific antigen [PSA] Medications: New finasteride 5 mg PO DAILY 90 tabs 1RF 90 days N13.8 - Other obstructive and reflux uropathy, N40.1 - Benign prostatic hyperplasia with lower urinary tract symptoms, R33.9 - Retention of urine, unspecified Patient Instructions: Imaging studies, laboratory and physical exam results were discussed and reviewed in detail. No major barriers to patient understanding were identified. An opportunity to ask questions regarding the treatment plan was provided. All questions were answered. The patient expressed understanding and agreement with the above treatment plan. The patient is aware they should contact our office by phone for worsening of their current condition or the appearance of new urologic symptoms. Compliance is encouraged with any medications and followup testing that is ordered. It is a privilege to participate in the urologic care of your patient. If you have any questions or concerns regarding treatment for the above conditions, or other urologic issues, please do not hesitate to contact me. The office telephone contact is [phone]. This note is constructed using voice recognition software. While every effort has been made to ensure accuracy restaurant kitchen and service manager errors may have been included. Yours sincerely, Dr Thiago Gross MD, [facility] - Urology Providers of Expert, Compassionate Care for the Genitourinary System Coding Level of Care Code Est Pt Level 3 (78661) Diagnoses Elevated PSA R97.20 Erectile dysfunction due to arterial insufficiency N52.01 Erectile dysfunction type: vasculogenic Vasculogenic erectile dysfunction type: due to arterial insufficiency BPH loc w urin obs/LUTS N40.1
== END 2023-09-12 14:23 | disposition home or self-care (01) ==
PROVIDERS: PCP Internal Medicine; Visit Provider Urology
DX: R97.20 Elevated prostate specific antigen [PSA] (principal); N52.01 Erectile dysfunction due to arterial insufficiency; N40.1 Benign prostatic hyperplasia with lower urinary tract symptoms
CPT/HCPCS: 99213

== ENCOUNTER → 2023-09-12 13:39 | Outpatient (BNVA) | payer MEDICARE, MEDICAID, SELFPAY | PROVIDERS: PCP Internal Medicine; Visit Provider Urology | DX: N40.1 Benign prostatic hyperplasia with lower urinary tract symptoms (principal); N13.8 Other obstructive and reflux uropathy; N52.01 Erectile dysfunction due to arterial insufficiency; R97.20 Elevated prostate specific antigen [PSA]; R33.8 Other retention of urine; Z79.899 Other long term (current) drug therapy | CPT/HCPCS: 99212 ==

== ENCOUNTER 2023-12-04 08:45 | Outpatient (REF) | payer MEDICARE, MEDICAID, SELFPAY ==
[2023-12-04 10:09] LABS: MANUAL DIFF FLAG NO
[2023-12-04 10:17] LABS: Basophils Absolute Auto 0.1 X10*3/uL (0.0-0.2); Basophils Percent Auto 0.6 % (0-2); Eosinophils Absolute Auto 0.3 X10*3/uL (0.0-0.4); Eosinophils Percent Auto 4.2 % (0-4); Hemoglobin 14.7 g/dl (14.0-18.0); Imm Gran Abs Auto 0.03 X10*3/uL (0.00-0.03); Imm Gran Pct Auto 0.4 % (0.0-0.4); Lymphocytes Absolute Auto 3.4 X10*3/uL (1.2-4.9); Lymphocytes Percent Auto 42.7 % (20-40); Mean Corpuscular HGB Conc 33.4 g/dl (31.0-36.0); Mean Corpuscular Hemoglobin 30.2 pg (27.0-33.0); Mean Corpuscular Volume 90.5 fL (80.0-98.0); Mean Platelet Volume 10.9 fL (9.4-12.4); Monocytes Absolute Auto 0.6 X10*3/uL (0.1-1.2); Neutrophils Absolute Auto 3.5 x10*3/uL (2.0-8.3); Neutrophils Percent Auto 45.1 % (45-73); Platelet Count 189 X10*3/uL (160-400); Red Blood Count 4.86 X10*6/uL (4.60-5.80); Red Cell Distribution Width 13.4 % (11.0-16.0); White Blood Count 7.9 X10*3/uL (4.8-10.8)
[2023-12-04 10:43] LABS: Alanine Aminotransferase 31 U/L (0-40); Albumin Level 4.4 g/dL (3.5-5.0); Alkaline Phosphatase 79 U/L (39-117); Anion Gap 12 (12-20); Aspartate Amino Transferase 23 U/L (5-37); Bilirubin Total 0.5 mg/dL (0.0-1.0); Blood Urea Nitrogen 22 mg/dL (9-16); Carbon Dioxide 22 mmol/L (22-29); Chloride 109 mmol/L (96-108); Cholesterol 235 mg/dL (<200); Estimated Glomerular Filt Rate > 60; Glucose Random 128 mg/dL (60-115); HDL Cholesterol 29 mg/dL (>40); Potassium 4.1 mmol/L (3.3-5.1); Sodium 139 mmol/L (135-145); Total Protein 7.2 g/dL (6.5-8.0); Triglycerides 521 mg/dL (<150)
[2023-12-04 10:47] LABS: TSH reflex Free T4 1.18 uIU/mL (0.32-4.0)
[2023-12-04 11:06] LABS: Folate 15.3 ng/mL (> or = 4.0); Vitamin B12 526 pg/mL (200-900)
== END 2023-12-04 08:46 | disposition home or self-care (01) ==
LOC: HO.HMGCLDS 08:45
PROVIDERS: PCP Internal Medicine; Visit Provider Internal Medicine
DX: Z00.00 Encounter for general adult medical examination without abnormal findings (principal); I10 Essential (primary) hypertension
CPT/HCPCS: 36415; 80053; 80061; 82607; 82746; 84443; 85025

== ENCOUNTER 2024-04-23 10:02 | Outpatient (REF) | payer MEDICARE, MEDICAID, SELFPAY ==
[2024-04-23 14:46] LABS: PSA,Total (Free>4and<10) 1.69 ng/mL (0.00-4.00)
== END 2024-04-23 10:03 | disposition home or self-care (01) ==
LOC: HO.CHCLDS 10:02
PROVIDERS: Visit Provider Urology
DX: Z12.5 Encounter for screening for malignant neoplasm of prostate (principal); R97.20 Elevated prostate specific antigen [PSA]
CPT/HCPCS: 36415; 84153

== ENCOUNTER 2024-05-01 11:41 | Outpatient (AMB) | payer MEDICARE, MEDICAID, SELFPAY ==
--- NOTE | 2024-05-01 11:46 | MHC.OFFVIS ---
Intake Visit Reasons: PSA(free/total)follow Up(set) Intake Note: Patient is present for PFS FREE/TOTAL Urology Medication:SILDENAFIL,TADALAFIL,FINASTERIDE Antibiotic Allergy:NONE Blood Thinner:NONE Combination Machine Tender Required: No Allergies No Known Allergies Allergy (Verified 05/01/24 11:49) HPI Comments Details: Osmar is a pleasant male. He is a patient of Dr. Butcher. He is seen for the following urologic reasons - lower urinary tract symptoms - erectile dysfunction Six-month follow-up Follow-up regarding urinary control and erectile dysfunction PSA responded well to finasteride Does have some weakness of stream Trial terazosin Plan cystoscopy next visit Lower urinary tract symptoms Progressive Nocturia x2 down from 4 Prior prostate procedure many years ago Assisted by daily tadalafil with on demand sildenafil Erectile dysfunction Minimal responsiveness to 100 mg sildenafil on demand Has not tried daily medications Background arthritis on methotrexate Cardiovascular risk factors high blood pressure on medications PSA 07/31 4.1, 09/04 6.6, 05/06 1.7 Trial daily tadalafil with on demand sildenafil - refill prescription [facility] Medical History Migraine Elevated PSA Family History Mother Psoriatic arthritis Father Rheumatoid arthritis Social History Alcohol intake: current Alcohol intake frequency: holidays/special occasions only Patient Tobacco Use Status: Current everyday Tobacco user Tobacco use type: Cigarette Cigarettes Per Day: 6 Years Smoked: 50 Review of Systems Const Denies chills and Denies fever(s) Card Reports no additional complaints and Denies syncope Resp Denies cough GI Denies abdominal pain and Denies heartburn Reports as per HPI and Denies change in libido Neuro Denies syncope Psych Denies change in libido Endo Denies change in libido Physical Exam Const General: cooperative, healthy appearing, comfortable and no acute distress Orientation/consciousness: patient oriented x3 HEENT Face and sinus: Yes normal facial exam Mouth: moist mucous membranes Neck Neck: Yes normal visual inspection, Yes full ROM and Yes trachea midline Chest Chest palpation & inspection: normal inspection of the chest Resp Effort & Inspection: normal respiratory effort, able to speak in complete sentences and no respiratory distress GI Inspection: Yes normal to inspection Back/Spine/Pelvis Cervical Spine: normal cervical lordosis Thoracic/Lumbar Spine: thoracic and lumbar spine normal to inspection Skin General skin exam: no rashes or lesions noted Neuro General: patient oriented x3, gait normal, tone normal and moves all extremities Extrem General: Yes normal to inspection and Yes capillary refill normal Assessment & Plan Assessment & Plan (1) Elevated PSA: Code(s): R97.20 - Elevated prostate specific antigen [PSA] Category: Medical (2) BPH loc w urin obs/LUTS: Code(s): N40.1 - Benign prostatic hyperplasia with lower urinary tract symptoms Category: Medical (3) Erectile dysfunction: Code(s): N52.9 - Male erectile dysfunction, unspecified Category: Medical Qualifiers: Erectile dysfunction type: vasculogenic Vasculogenic erectile dysfunction type: due to arterial insufficiency Qualified Code(s): N52.01 - Erectile dysfunction due to arterial insufficiency Plan Six-month follow-up Check cystoscopy Orders: Orders AMB Urinalysis Automated Today Z13.9 - Encounter for screening, unspecified Medications: New terazosin 5 mg PO BEDTIME 30 days 30 caps 1RF N40.1 - Benign prostatic hyperplasia with lower urinary tract symptoms, R35.0 - Frequency of micturition Patient Instructions: Imaging studies, laboratory and physical exam results were discussed and reviewed in detail. No major barriers to patient understanding were identified. An opportunity to ask questions regarding the treatment plan was provided. All questions were answered. The patient expressed understanding and agreement with the above treatment plan. The patient is aware they should contact our office by phone for worsening of their current condition or the appearance of new urologic symptoms. Compliance is encouraged with any medications and followup testing that is ordered. It is a privilege to participate in the urologic care of your patient. If you have any questions or concerns regarding treatment for the above conditions, or other urologic issues, please do not hesitate to contact me. The office telephone contact is [phone]. This note is constructed using voice recognition software. While every effort has been made to ensure accuracy gimp tacker errors may have been included. Yours sincerely, Dr Thiago Gross MD, [facility] - Urology Providers of Expert, Compassionate Care for the Genitourinary System Coding Level of Care Code Est Pt Level 4 (31628) Diagnoses Elevated PSA R97.20 BPH loc w urin obs/LUTS N40.1 Erectile dysfunction due to arterial insufficiency N52.01 Erectile dysfunction type: vasculogenic Vasculogenic erectile dysfunction type: due to arterial insufficiency
== END 2024-05-01 12:53 | disposition home or self-care (01) ==
PROVIDERS: PCP Internal Medicine; Visit Provider Urology
DX: R97.20 Elevated prostate specific antigen [PSA] (principal); N40.1 Benign prostatic hyperplasia with lower urinary tract symptoms; N52.01 Erectile dysfunction due to arterial insufficiency; Z13.9 Encounter for screening, unspecified
CPT/HCPCS: 99214

== ENCOUNTER → 2024-05-01 11:41 | Outpatient (BNVA) | payer MEDICARE, MEDICAID, SELFPAY | PROVIDERS: PCP Internal Medicine; Visit Provider Urology | DX: N40.1 Benign prostatic hyperplasia with lower urinary tract symptoms (principal); R35.0 Frequency of micturition; N52.01 Erectile dysfunction due to arterial insufficiency; R97.20 Elevated prostate specific antigen [PSA] | CPT/HCPCS: 81003; 99212 ==

== ENCOUNTER 2024-05-28 12:32 | Outpatient (REF) | payer MEDICARE, MEDICAID, SELFPAY ==
[2024-05-28 14:39] LABS: Estimated Average Glucose 151 mg/dL; Glucose Random 152 mg/dL (60-115); Hemoglobin A1C 182.5596 umol/L; Hemoglobin A1c % 6.9 % (<6.0); Total Hemoglobin (HGBA1C) 3535.7078 umol/L
[2024-05-28 15:17] LABS: Folate 17.5 ng/mL (> or = 4.0); Vitamin B12 442 pg/mL (200-900)
[2024-06-02 13:49] LABS: Vitamin B1 22 nmol/L (8-30)
[2024-06-03 17:43] LABS: Vitamin B6 12.2 ng/mL (2.1-21.7)
== END 2024-05-28 12:33 | disposition home or self-care (01) ==
LOC: HO.CHCLDS 12:32
PROVIDERS: Visit Provider Internal Medicine
DX: R20.2 Paresthesia of skin (principal); R73.01 Impaired fasting glucose
CPT/HCPCS: 36415; 82607; 82746; 82947; 83036; 84207; 84425

== ENCOUNTER 2024-06-17 05:56 | Outpatient (REF) | payer MEDICARE, MEDICAID, SELFPAY ==
--- NOTE | 2024-06-17 | EMG_ITS ---
Bilateral tibial and peroneal motor studies were performed. Bilateral superficial peroneal and sural sensory studies were performed. Tibial H reflexes were obtained and paraspinal muscles were tested with a needle. 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 MD FRANCISCO Colon/DEEDEE / [id number]
== END 2024-06-17 05:57 | disposition home or self-care (01) ==
LOC: HO.NEURO 05:56
PROVIDERS: PCP Internal Medicine; Visit Provider Internal Medicine
DX: R20.2 Paresthesia of skin (principal)
CPT/HCPCS: 95886; 95911

== ENCOUNTER 2024-09-23 10:53 | Outpatient (AMB) | payer MEDICARE, MEDICAID, SELFPAY ==
--- NOTE | 2024-09-23 10:58 | MHC.OFFVIS ---
Vital Signs 09/23/24 11:12 Height 5 ft 10 in Weight 207 lb BMI 29.7 BP 141/76 H Blood Pressure Location Lt brachial Position Sitting Pulse 92 Intake Visit Reasons: hernia Intake Note: Patient is seen in office for evaluation of an umbilical hernia. Pt c/o: has a lump in the belly button, recently started to bother, denies redness, discharge, or other concerns ref C:09/08/24 [employer] Required: No Accompanied by: Self / Same As Patient Allergies No Known Allergies Allergy (Verified 09/23/24 11:05) Medication List - Last Reconciled 09/23/24 by Blake Pierson MD acetaminophen ER (Tylenol 8 Hour) 650 mg PO QAM amlodipine 5 mg PO DAILY cbyoyhjizq-brrznirdaehwr-mury 50-325-40 mg tabs PO DAILY PRN finasteride 5 mg PO DAILY 90 days sildenafil 100 mg PO DAILY PRN 30 days tadalafil 5 mg PO DAILY 90 days terazosin 5 mg PO BEDTIME 90 days HPI Comments Details: 69-year-old male patient presenting for evaluation of an umbilical hernia. He 1st noted the umbilical hernia several years ago when he began to gain some weight after retiring. Initially the hernia was asymptomatic but now he is noting some abdominal pain especially when leaning on his truck, putting pressure on the umbilicus. He denies any nausea, vomiting, diarrhea or constipation. He denies any previous surgery in this location. He is interested in having the hernia repaired. 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 [facility] Medical History Migraine Elevated PSA Surgical History History of shoulder surgery Hx of knee surgery Family History Mother Psoriatic arthritis Father Rheumatoid arthritis Social History Alcohol intake: current Alcohol intake frequency: holidays/special occasions only Patient Tobacco Use Status: Current everyday Tobacco user Tobacco use type: Cigarette Cigarettes Per Day: 6 Years Smoked: 50 Review of Systems Const All systems reviewed & are unremarkable except as noted in HPI and below Physical Exam Vital Signs: Last Vital Signs Pulse 92 09/23/24 11:12 BP 141/76 H 09/23/24 11:12 BMI result Body Mass Index 29.7 Const General: cooperative and no acute distress Nutritional Appearance: well nourished Orientation/consciousness: patient oriented x3 Limitations: no limitations HEENT Head: Yes normocephalic and Yes atraumatic Ears: hearing grossly normal bilaterally Resp Effort & Inspection: normal respiratory effort, no audible wheezes, no cough and no respiratory distress Cardio Jugular venous distension: no JVD GI Inspection: Yes normal to inspection Palpation (GI): Soft to palpation, nontender, no guarding, not rigid and Hernia present umbilical (3 cm defect, reducible, mild tenderness to palpation) Percussion: Yes normal to percussion Abdomen image: 1. 3 cm reducible umbilical hernia Skin Other: Warm, dry, no rash Neuro General: patient oriented x3 Extrem General: Yes no clubbing, cyanosis or edema Assessment & Plan Assessment & Plan (1) Umbilical hernia without mention of obstruction or gangrene: Code(s): K42.9 - Umbilical hernia without obstruction or gangrene Category: Medical Qualifiers: Obstruction and gangrene presence: without obstruction or gangrene Qualified Code(s): K42.9 - Umbilical hernia without obstruction or gangrene Plan 69-year-old male patient presenting with a gradually enlarging umbilical hernia which is now causing discomfort. On examination he has a reducible umbilical hernia measuring approximately 3 cm in diameter. The hernias easily reducible. I recommended repair of this umbilical hernia with mesh and after discussion of the procedure, risks, and alternatives, he consents to the surgery. Coding Level of Care Code New Pt Level 4 (36247) Diagnoses Umbilical hernia without obstruction and without gangrene K42.9 Obstruction and gangrene presence: without obstruction or gangrene
[2024-09-23 11:12] VITALS: BP 141/76; PULSE 92; BMI 29.7
--- OUTSIDE RECORDS SUMMARY | 2024-09-23 12:18 | XMS_ITS | Encounter Summary ---
Author Organization [employer] Address [address] [place] [address] Care Team Providers Care Wet Roaster Name Role Phone Edis Thomas MD Primary Care Provider [phone] Reason for Visit * Reason Onset Date Comments call back requested 05/22/2024 Encounter Details Date Type Department Care Team (Late st Contact Info) Description 05/22/2024 Telephone [facility] MEDICINE [address] [place] [address] Edis Thomas MD [address] [place] [address] call back requested Social History Tobacco Use Types Packs/Day Years Used Date Smoking Tobacco: Never Smokeless Tobacco: Never Depression Answer Date Recorded Patient Health Questionnaire-9 Score 0 11/29/2023 Patient Health Questionnaire-9 Score 0 11/29/2023 Last PHQ-9: Questionnaire Data Not on file 0 11/29/2023 Housing Stability Answer Date Recorded What is your housing situation today? I have brittany hart 11/23/[address] you li ve. Do you have problems with any of the following? None of the above 11/23/2023 Food Insecurity Answer Date Recorded Within the past 12 months, y ou worried that your food would run out before you got money to buy more: Never True 11/23/2023 Within the past 12 months,th e food you bought just didn't last and you didn't have enough money to get more: Never True 04/2024 Transportation Answer Date Recorded In the past 12 months, has l ack of transportation kept you from medical appts, meetings, work or from getting things needed for daily living? No 11/23/2023 Utilities Answer Date Recorded In the past 12 months, has t he electric, gas, oil or water company threatened to shut off services in your home? No 11/23/2023 Depression Answer Date Recorded Patient Health Questionnaire-2 Score 0 11/29/2023 Internet Access Answer Date Recorded Internet Access Q1 No 01/14/2024 Internet Access Q2 Not on file 01/14/2024 Sex and Gender Information Value Date Recorded Sex Assigned at Male 03/13/2022 10:35 AM EDT Legal Sex Male 10:35 AM EDT Gender Identity Male 03/13/2022 10:35 AM EDT Sexual Orientation Straight 03/13/2022 10 :35 AM EDT documented as of this encounter Miscellaneous Notes * Telephone Encounter - Alfreda Garcia RN - 05/26/2024 9:24 AM EST called pt to triage, spoke to pt. pt states he spoke to PCP last week and was supposed to hear backabout an appt. pt states for a while now, having numbness of both pinky fingers and both baby toes intermittently. pt is not DM and has not had these symptoms prior. also, pt needs his headache medicine and was supposed to have refilled. looking in the chart, this medication has been ordered and isawaiting signing by PCP. given appt with PCP 02/27 at 11:15 for exam. advised home care: rest, fluids, and monitor symptoms. pt understands and agrees with plan. insurance verified. Protocol Used: Neurologic Deficit (Adult) Protocol-Based Disposition: See in Office or Video Visit within 3 Days Video visit offer not recorded Positive Triage Question: * Numbness or tingling on both sides of body and is a new symptom lasting > 24 hours * All higher-acuity triage questions were negative Care Advice Discussed: * Reassurance and Education - Tingling in Foot * Reassurance and Education - Tingling in Hand * Reasons To Call Back - Symptoms do not go away within 10 to 15 minutes - You become worse * Telephone Encounter - Abhay Valdez - 05/26/2024 9:12 AM EST Pt returning call * Telephone Encounter - Fani Mae Kiran - 05/22/2024 11:04 AM EST Tc from pt requesting a call back in regards last visit with pcp. documented in this encounter Plan of Treatment Upcoming Encounters Date Type Department Care Team (Late st Contact Info) Description 12/11/2024 11:30 AM EDT Office Visit [facility] & PEDS [address] [place] [address] Edis Thomas MD [address] [place] [address] documented as of this encounter Visit Diagnoses Diagnosis Chronic migraine without aura without status migrainosus, not intractable documented in this encounter Additional Health Concerns Assessment Noted Time PHQ-9 Depression Total Score: 0 11/29/19 24 10:51 AM EDT documented as of this encounter Care Teams Wet Roaster Relationship Specialty Start Date End Date Edis Thomas MD [address] [place] [address] PCP - General Internal Medicine 10/17/18 documented as of this encounter
--- OUTSIDE RECORDS SUMMARY | 2024-09-23 12:18 | XMS_ITS | Encounter Summary ---
Author Organization [employer] Address [address] [place] [address] Care Team Providers Care Physiotherapy Practice Manager Name Role Phone Edis Thomas MD Primary Care Provider [phone]- [phone] Reason for Visit * Reason Onset Date Comments Med Refill 05/22/2024 Encounter Details Date Type Department Care Team (Late st Contact Info) Description 05/22/2024 Telephone [facility] MEDICINE [address] [place] [address] Edis Thomas MD [address] [place] [address] Med Refill Social History Tobacco Use Types Packs/Day Years [...] encounter Miscellaneous Notes * Telephone Encounter - Fani Beck - 05/22/2024 11:02 AM EST TC from pt requesting medication refill. Medications needing refill : ndriwteyci-wpbsemrbprsyd-rlsazrid 50-325-40 MG tablet To be sent to: [facility] [address] [place] [address] documented in this encounter Plan of Treatment Upcoming Encounters Date Type Department Care Team (Late st Contact Info) Description 12/11/2024 11:30 AM EDT Office Visit [facility] MED & PEDS [address] [place] [address] Edis Thomas MD [address] [place] [address] documented as of this encounter Visit Diagnoses Not on filedocumented in this encounter Additional Health Concerns Assessment Noted Time PHQ-9 Depression Total Score: 0 11/29/19 24 10:51 AM EDT documented as of this encounter Care Teams Physiotherapy Practice Manager Relationship Specialty Start Date End Date Edis Thomas MD [address] [place] [address] PCP - General Internal Medicine 10/17/18 documented as of this encounter
--- OUTSIDE RECORDS SUMMARY | 2024-09-23 12:19 | XMS_ITS | Encounter Summary ---
Author Organization [employer] Address [address] [place] [address] Care Team Providers Care Neighborhood Aide Name Role Phone Edis Thomas MD Primary Care Provider [phone] Encounter Details Date Type Department Care Team ([facility] st Contact Info) Description 11/29/2023 Orders Only [facility] PEDS [address] [place], [place] [id number] Edis Thomas MD [address] [place] [address] Bilateral impacted cerumen (Primary Dx); Chronic migraine without aura without status migrainosus, not intractable Social History Tobacco Use Types Packs/Day Years [...] Recorded Patient Health Questionnaire-2 Score 0 11/29/2023 Sex and Gender Information Value Date Recorded Sex Assigned at Male 03/13/2022 10:35 AM EDT Legal Sex Male 10:35 AM EDT Gender Identity Male 03/13/2022 10:35 AM EDT Sexual Orientation Straight 03/13/2022 10 :35 AM EDT documented as of this encounter Plan of Treatment Upcoming Encounters Date Type Department Care Team (Late st Contact Info) Description 12/11/2024 11:30 AM EDT Office Visit [facility] MED & PEDS [address] [place] [address] Edis Thomas MD [address] [place] [address] documented as of this encounter Visit Diagnoses Diagnosis Bilateral impacted cerumen- Primary Impacted cerumen Chronic migraine without aura without status migrainosus, not intractable documented in this encounter Additional Health Concerns Assessment Noted Time PHQ-9 Depression Total Score: 0 11/29/19 24 10:51 AM EDT documented as of this encounter Care Teams Neighborhood Aide Relationship Specialty Start Date End Date Edis Thomas MD [address] [place] [address] PCP - General Internal Medicine 10/17/18 documented as of this encounter
--- OUTSIDE RECORDS SUMMARY | 2024-09-23 12:19 | XMS_ITS | Encounter Summary ---
Author Organization [employer] Address [address] [place] [address] Care Team Providers Care Emergency Registrar Name Role Phone Edis Thomas MD Primary Care Provider [phone]- [phone] Reason for Visit * Reason Onset Date Comments Med Refill 02/26/2023 Encounter Details Date Type Department Care Team (Late st Contact Info) Description 02/26/2023 Telephone [facility] MED & PEDS [address] [place] [address] Edis Thomas MD [address] [place] [address] Med Refill Social History Tobacco Use Types Packs/Day Years Used Date Smoking Tobacco: Never Assessed Sex and Gender Information Value Date Recorded Sex Assigned at Male 03/13/2022 10:35 AM EDT Legal Sex Male 10:35 AM EDT Gender Identity Male 03/13/2022 10:35 AM EDT Sexual Orientation Straight 03/13/2022 10 :35 AM EDT documented as of this encounter Miscellaneous Notes * Telephone Encounter - Bridget Burleson - 02/26/2023 9:57 AM EDT Tc from patient requesting a med refill for medication amLODIPine (Norvasc) [address] Thomas documented in this encounter Plan of Treatment Upcoming Encounters Date Type Department Care Team (Late st Contact Info) Description 12/11/2024 11:30 AM EDT Office Visit [facility] MED [facility] PEDS [address] [place] [address] Edis Thomas MD [address] [place] [address] documented as of this encounter Visit Diagnoses Not on filedocumented in this encounter Care Teams Emergency Registrar Relationship Specialty Start Date End Date Edis Thomas MD [address] [place] [address] PCP - General Internal Medicine 10/17/18 documented as of this encounter
--- OUTSIDE RECORDS SUMMARY | 2024-09-23 12:19 | XMS_ITS | Clinical Summary ---
Author Organization [employer] Address [address] [place] [address] 7t [place] [address] Care Team Providers Care Litharge Mill Operator Name Role Phone Edis Thomas MD Primary Care Provider [phone]- [phone] Allergies No known active allergies Medications Diclofenac Sodium (Voltaren) 1 % gel apply (2G) by topical route 2 times every day to the affected area(s) 08/28/19 21 Active sildenafil (Viagra) 100 MG tablet take 1 tablet by oral route every day as needed approximately 1 hour before sexual activity 11/10/19 22 Active finasteride (Proscar) 5 MG tablet Take 5 mg by mouth Once per day. 12/07/19 24 Active amLODIPine (Norvasc) 5 MG tabletIndication s:Essential hypertension TAKE 1 TABLET BY MOUTH IN THE MORNING 30 tablet 11 03/12/20 24 Active b complex vitamins capsuleIndicatio ns:Paresthesias Take 1 capsule by mouth Once per day. 30 capsule 11 05/28/19 25 026 Active gabapentin (Neurontin) 100 MG capsuleIndicatio ns:Paresthesias Take 2 capsules (200 mg) by mouth 2 times daily. 120 capsule 11 05/28/19 25 026 Active butalbital-aceta minophen-caffein e 50-325-40 MG tabletIndication s:Chronic migraine without aura without status migrainosus, not intractable TAKE 1 TABLET BY MOUTH ONCE DAILY NEEDED 30 tablet 05/28/19 25 Active Tirzepatide-Weig ht Management (Zepbound) 2.5 MG/0.5ML solution auto-injectorInd ications:Impaire d fasting glucose,Class 1 obesity due to excess calories with serious comorbidity and body mass index (BMI) of 31.0 to 31.9 in adult Inject 0.5 mL (2.5 mg) under the skin 1 (one) time per week. 2 mL 1 09/05/19 25 Active Active Problems Problem Noted Date Diagnosed Date Impotence 03/19/2023 03/19/2023 Migraine 03/19/2023 03/19/2023 Hypertensive disorder 11/04/2020 03/19/2023 Impaired fasting glucose 09/08/2020 023 Arthritis 08/30/2020 03/19/2023 Raised prostate specific antigen 08/30/2020 03/19/2023 Encounters Date Type Department Care Team Description 09/04/2024 1:00 PM EDT Office Visit [facility] MED & PEDS [address] [place] [address] Edis Thomas MD Primary hypertension (Primary Dx); Impaired fasting glucose; Dietary counseling; Exercise counseling; Class 1 obesity due to excess calories with serious comorbidity and body mass index (BMI) of 31.0 to 31.9 in adult; Umbilical hernia without obstruction and without gangrene 09/04/2024 Travel 08/28/2024 Travel 08/26/2024 Patient Outreach [facility] [address] [place] [address] Edis Thomas MD Pre-visit Planning (SDOH screening negative and Tobacco screening negative) from Last 3 Months Immunizations Name Administration Dates Next Due Pneumococcal Conjugate PCV 20 11/29/2023 Social History Tobacco Use Types Packs/Day Years Used Date Smoking Tobacco: Never Smokeless Tobacco: Never Tobacco Cessation:Counseling Given: Not Answered Depression Answer Date Recorded Patient Health Questionnaire-9 [...] Access Answer Date Recorded Internet Access Q1 Yes 08/26/2024 Internet Access Q2 Not on file 08/26/2024 Sex and Gender Information Value Date Recorded Sex Assigned at Male 03/13/2022 10:35 AM EDT Legal Sex Male 10:35 AM EDT Gender Identity Male 03/13/2022 10:35 AM EDT Sexual Orientation Straight 03/13/2022 10 :35 AM EDT Last Filed Vital Signs Vital Sign Reading Time Taken Comments Blood Pressure 130/78 09/04/2024 1:01 PM EDT Pulse 78 09/04/2024 1:01 PM EDT Temperature 36.9 ??C (98.4 ??F) 09/04/2024 1:01 PM ED T Respiratory Rate 20 09/04/2024 1:01 PM EDT Oxygen Saturation 98% 09/04/2024 1:01 PM EDT Inhaled Oxygen Concentration - - Weight 94.3 kg (208 lb) 09/04/2024 1:01 PM EDT Height 174 cm (5' 8.5 ) 09/04/2024 1:01 PM EDT Body Mass Index 31.16 09/04/2024 1:01 PM EDT Plan of Treatment Upcoming Encounters Date Type Department Care Team (Late st Contact Info) Description 12/11/2024 11:30 AM EDT Office Visit [facility] MED & PEDS [address] [place] [address] Edis Thomas MD [address] [place] [address] Health Maintenance Due Date Last Done Comments CT Colonography 1953 Colonoscopy 1953 FIT 1953 FOBT 1955 Sigmoidoscopy 1953 DTaP/Tdap/Td Vaccines (1 - Tdap) 1972 Zoster Vaccines (1 of 2) 07/16/2003 RSV Patients and Patients Aged 60 years or older (1 - Risk 60-74 years 1-dose series) 2013 COVID-19 Vaccine (3 - 2023-2 5 season) 2024 08/10/2020, 07/13/2020 Influenza Vaccine (#1) 2024 Depression Screening 11/28/2024 11/29/2023, 11/29/2023 SDOH Screening 08/26/2025 08/26/2024 Alcohol/Substance Use Screening 09/04/2025 09/04/2024 Tobacco Screening 09/04/2025 09/04/2024 Colorectal Cancer Screening 12/02/2026 FIT DNA/Cologuard 12/02/2026 12/03/2023 Lipid Panel 12/03/2028 12/04/2023, 09/06/2020 Hepatitis C Screening Completed 04/03/2023 , 11/24/2020, 11/24/2020 Pneumococcal Vaccine: 50+ Years Completed 11/29/2023 HIB Vaccines Aged Out No longer eligi ble based on patient's age to complete this topic HPV Vaccines Aged Out No longer eligi ble based on patient's age to complete this topic Hepatitis A Vaccines Aged Out No long er eligible based on patient's age to complete this topic Hepatitis B Vaccines Aged Out No long er eligible based on patient's age to complete this topic IPV Vaccines Aged Out No longer eligi ble based on patient's age to complete this topic Meningococcal Vaccine Aged Out No regina kong eligible based on patient's age to complete this topic RSV under 20 months Aged Out No longe r eligible based on patient's age to complete this topic Rotavirus Vaccines Aged Out No longer eligible based on patient's age to complete this topic Procedures Procedure Name Priority Date/Time Associated Diagnosis Comments LIPID PANEL, STANDARD Routine 12/04/2023 8:54 AM EDT Annual physical exam Primary hypertension LAB COLOGUARD?? COLON CANCER SCREEN Routine 12/03/2023 11:30 AM EDT Annual physical exam Screening for colon cancer HEPATITIS PANEL, GENERAL Routine 04/03/2023 8:58 AM EST from Last 3 Months or Most Recently Relevant to Health Maintenance Results * (ABNORMAL) Lipid Panel, Standard (12/04/2023 8:54 AM EDT) Triglycerides 521(H) <150 mg/dL [facility] Comment:Desirable Triglyceri de: less than 150 mg/dLBorderline High Triglyceride 150-199 mg/dLHigh Triglyceride: 200-499 mg/dLVery High Triglyceride: greater than or equal to 5OO mg/dL Cholesterol 235(H) <200 mg/dL [facility] Comment:Desirable Cholestero l: less than 200 mg/dLBorderline High Cholesterol: 200-239 mg/dLHigh Cholesterol: greater than 239 mg/dL LDL Cholesterol Calculated TNP <100 mg/dL [facility] Comment:Unable to calculate the LDL. The formula of Friedwald,Goodrich, and Bianka is only valid if the triglycerides areless than 400 mg/dl. HDL Cholesterol 29(L) >40 mg/dL [facility] Comment:Desirable HDL: great er than 40 mg/dL Note: This HDL assay may give artificially low results in patients with liver disease. Blood Venous blood specimen / Unknown 12/04/2023 8:54 AM EDT 12/04/2023 10:02 AM EDT us Edis Thomas MD LAB BLOOD ORDERABLES Final Result [facility] [address] [place] [address] [phone] * Cologuard?? colon cancer screening (12/03/2023 11:30 AM EDT) Cologuard Result Negative Negative 12/07/19 6:38 PM EDT [facility] [facility] (CLIA #:[id number]) Comment: NEGATIVE TEST RESULT. A negative Cologuard result indicates a low likelihood that a colorectal cancer (CRC) or advanced adenoma (adenomatous polyps with more advanced pre-malignant features) ??is present. The chance that a person with a negative Cologuard test has a colorectal cancer is less than 1 in 1500 (negative predictive value >99.9%) or has an ??advanced adenoma is less than ??5.3% (negative predictive value 94.7%). These data are based on a prospective cross-sectional study of 10,000 individuals at average risk for colorectal cancer who were screened with both Cologuard and colonoscopy. (Carolina Cabrales. et al, N Engl J Med 2014;370(14):1286- 1297) The normal value (reference range) for this assay is negative. COLOGUARD RE-SCREENING RECOMMENDATION: Periodic colorectal cancer screening is an important part of preventive healthcare for asymptomatic individuals at average risk for colorectal cancer. ??Following a negative Cologuard result, the [place] [employer] Society and U.S. Multi-Society Task Force screening guidelines recommend a Cologuard re-screening interval of 3 years. References: [place] [employer] Guideline for Colorectal Cancer Screening: https://www.cancer.org/cancer/jiust-tdasbu-grnxma/yzdfjtycv-bqqigzjay-zixspzb/ac s-rec ommendations.html.; Mingo LOCK, Norberto MARTINEZ, Sudha BillK, Colorectal Cancer Screening: Recommendations for Physicians and Patients from the U.S. Multi-Society Task Force on Colorectal Cancer Screening , Am J Gastroenterology 2017; 112:8601-5736. TEST DESCRIPTION: Composite algorithmic analysis of stool DNA-biomarkers with hemoglobin immunoassay. ?? Quantitative values of individual biomarkers are not reportable and are not associated with individual biomarker result reference ranges. Cologuard is intended for colorectal cancer screening of adults of either sex, 45 years or older, who are at average-risk for colorectal cancer (CRC). Cologuard has been approved for use by the U.S. FDA. The performance of Cologuard was established in a cross sectional study of average-risk adults aged 50-84. Cologuard performance in patients ages 45 to 49 years was estimated by sub-group analysis of near-age groups. Colonoscopies performed for a positive result may find as the most clinically significant lesion: colorectal cancer [4.0%], advanced adenoma (including sessile serrated polyps greater than or equal to 1cm diameter) [20%] or non- advanced adenoma [31%]; or no colorectal neoplasia [45%]. These estimates are derived from a prospective cross-sectional screening study of 10,000 individuals at average risk for colorectal cancer who were screened with both Cologuard and colonoscopy. (Carolina Lucas et al, N Engl J Med 2014;370(14):1462-0692.) Cologuard may produce a false negative or false positive result (no colorectal cancer or precancerous polyp present at colonoscopy follow up). A negative Cologuard test result does not guarantee the absence of CRC or advanced adenoma (pre-cancer). The current Cologuard screening interval is every 3 years. ([place] [employer] Society and U.S. Multi-Society Task Force). Cologuard performance data in a 10,000 patient pivotal study using colonoscopy as the reference method can be accessed at the following location: www.[employer]/results. Additional description of the Cologuard test process, warnings and precautions can be found at www.[employer]. Stool specimen (specimen) 12/03/2023 11:30 AM EDT 12/04/2023 1:44 PM EDT Edis Thomas MD LAB MOLECULAR DIAGNOSTICS O RDERABLES Final Result [facility] [facility] (CLIA #:[id number]) [place] [address], * Hepatitis Panel, General (04/03/2023 8:58 AM EST) Hepatitis A IgM Nonreactive Nonreactive [facility] Comment:IgM antibodies to MENEZES V not detected; does not exclude earlyacute or recovered HAV infection. ~Hepatitis B Surface Antibody NONREACTIVE Nonreactive [facility] Comment:Nonreactive: < 8.00 mIU/mL Hepatitis B Core Antibody Nonreactive Nonreactive [facility] Hepatitis C Antibody Nonreactive Nonreactive [facility] Comment:Antibodies to HCV no t detected; does not exclude early acuteHCV infection. Hepatitis B Surface Ag Negative Negative [facility] 04/03/2023 8:58 AM EST 04/03/2023 11:12 AM EST us Generic External Data Provider LAB BLOOD ORDERAB LES Final Result Performing Organization Address City/State/[facility] Co de Phone Number [facility] [address] [place] [address] [phone] from Last 3 Months or Most Recently Relevant to Health Maintenance Insurance MEDICARE [facility] Care Teams Litharge Mill Operator Relationship Specialty Start Date End Date Edis Thomas MD [address] [place] [address] [place] [address] PCP - General Internal Medicine 10/17/18
--- OUTSIDE RECORDS SUMMARY | 2024-09-23 12:19 | XMS_ITS | Encounter Summary ---
Author Organization [employer] Address [address] [facility] 7t [place] [address] Care Team Providers Care Electroplating Laborer Name Role Phone Edis Thomas MD Primary Care Provider [phone] Encounter Details Date Type Department Care Team ([facility] st Contact Info) Description 03/07/2024 Orders Only [facility] CH[facility] MED & PEDS [address] [place], [place] [phone] Provider, MD Jesus Social History Tobacco Use Types Packs/Day Years [...] Description 12/11/2024 11:30 AM EDT Office Visit [facility] MED & PEDS [address] [place] [address] Edis Thomas MD [address] [place] [address] documented as of this encounter Procedures Procedure Name Priority Date/Time Associated Diagnosis Comments DERMATOPATHOLOGY REPORT Routine 02/27/2024 8:28 AM EDT documented in this encounter Results * Dermatopathology Report (02/27/2024 8:28 AM EDT) us Historical Provider LAB BLOOD ORDERABLES Clare l Result documented in this encounter Visit Diagnoses Not on filedocumented in this encounter Additional Health Concerns Assessment Noted Time PHQ-9 Depression Total Score: 0 11/29/19 24 10:51 AM EDT documented as of this encounter Care Teams Electroplating Laborer Relationship Specialty Start Date End Date Edis Thomas MD [address] [place] [address] PCP - General Internal Medicine 10/17/18 documented as of this encounter
--- OUTSIDE RECORDS SUMMARY | 2024-09-23 12:19 | XMS_ITS | Encounter Summary ---
Author Organization [employer] Address [address] [place] [address] [address]t [place] [address] Care Team Providers Care Military Police Officer Name Role Phone Edis Thomas MD Primary Care Provider [phone] Encounter Details Date Type Department Care Team ([facility] st Contact Info) Description 05/28/[address] [facility] MED & PEDS [address] [place], [place] [phone] Edis Thomas MD [address] [place] [address] Impaired fasting glucose (Primary Dx) Social History Tobacco Use Types Packs/Day Years [...] Upcoming Encounters Date Type Department Care Team ([facility] st Contact Info) Description 12/11/2024 11:30 AM EDT Office Visit [facility] & PEDS [address] [place] [address] Edis Thomas MD [address] [place] [address] documented as of this encounter Procedures Procedure Name Priority Date/Time Associated Diagnosis Comments GLUCOSE, RANDOM Routine 05/28/2024 12:34 PM EST Impaired fasting glucose documented in this encounter Results * (ABNORMAL) Glucose, Random, Serum (05/28/2024 12:34 PM EST) Glucose 152(H) 60 - 115 mg/dL [facility] Blood Venous blood specimen / Unknown 05/28/2024 12:34 PM EST 05/28/2024 2:20 PM EST us Edis Thomas MD LAB BLOOD ORDERABLES Final Result [facility] [address] [place] [address] [phone] documented in this encounter Visit Diagnoses Diagnosis Impaired fasting glucose- Primary documented in this encounter Additional Health Concerns Assessment Noted Time PHQ-9 Depression Total Score: 0 11/29/19 24 10:51 AM EDT documented as of this encounter Care Teams Military Police Officer Relationship Specialty Start Date End Date Edis Thomas MD [address] [place] [address] PCP - General Internal Medicine 10/17/18 documented as of this encounter
--- OUTSIDE RECORDS SUMMARY | 2024-09-23 12:19 | XMS_ITS | Encounter Summary ---
Author Organization [employer] Address [address] [facility] [address] [place] [address] Care Team Providers Care Liquefied Natural Gas Plant Operator Name Role Phone Edis Thomas MD Primary Care Provider [phone] Encounter Details Date Type Department Care Team ([facility] st Contact Info) Description 06/19/2024 Orders Only [facility] CH[facility] MED & PEDS [address] [place], [place] [phone] Edis Thomas MD [address] [place] [address] Social History Tobacco Use Types Packs/Day Years [...] 12/11/2024 11:30 AM EDT Office Visit [facility] MED & PEDS [address] [place] [address] Edis Thomas MD [address] [place] [address] documented as of this encounter Visit Diagnoses Not on filedocumented in this encounter Additional Health Concerns Assessment Noted Time PHQ-9 Depression Total Score: 0 11/29/19 24 10:51 AM EDT documented as of this encounter Care Teams Liquefied Natural Gas Plant Operator Relationship Specialty Start Date End Date Edis Thomas MD [address] [place] [address] PCP - General Internal Medicine 10/17/18 documented as of this encounter
--- OUTSIDE RECORDS SUMMARY | 2024-09-23 12:19 | XMS_ITS | Encounter Summary ---
Author Organization [employer] Address [address] [facility] [address] [place] [address] Care Team Providers Care Supervisor Drapery Hanging Name Role Phone Edis Thomas MD Primary Care Provider [phone] Reason for Visit * Reason Onset Date Comments Med Refill 09/25/2023 Encounter Details Date Type Department Care Team (Late st Contact Info) Description 09/25/2023 Telephone [facility] MEDICINE [address] [place] [address] Edis Thomas MD [address] [place], [place] [phone] Med Refill Social History Tobacco Use Types Packs/Day Years Used Date Smoking Tobacco: Never Assessed Sex and Gender Information Value Date Recorded Sex Assigned at Male 03/13/2022 10:35 AM EDT Legal Sex Male 10:35 AM EDT Gender Identity Male 03/13/2022 10:35 AM EDT Sexual Orientation Straight 03/13/2022 10 :35 AM EDT documented as of this encounter Miscellaneous Notes * Telephone Encounter - Laura Max - 09/25/2023 8:35 AM EDT TC from pt requesting medication refill. Medications needing refill : [id number] 50-325-40 MG tablet To be sent to: [facility] [address] [place] [address] documented in this encounter Plan of Treatment Upcoming Encounters Date Type Department Care Team (Late st Contact Info) Description 12/11/2024 11:30 AM EDT Office Visit [facility] CH[facility] MED & PEDS [address] [place] [address] Edis Thomas MD [address] [place] [address] documented as of this encounter Visit Diagnoses Not on filedocumented in this encounter Care Teams Supervisor Drapery Hanging Relationship Specialty Start Date End Date Edis Thomas MD [address] [place] [address] PCP - General Internal Medicine 10/17/18 documented as of this encounter
--- OUTSIDE RECORDS SUMMARY | 2024-09-23 12:19 | XMS_ITS | Encounter Summary ---
Author Organization [employer] Address [address] [place] [address] Care Team Providers Care Octave Board Racker Name Role Phone Edis Thomas MD Primary Care Provider [phone] Reason for Visit * Reason Onset Date Comments Medication Question 02/26/2023 Encounter Details Date Type Department Care Team ([facility] st Contact Info) Description 02/26/2023 Telephone [facility] CH[facility] MED & PEDS [address] [place], [place] [phone] Edis Thomas MD [address] [place] [address] Medication Question Social History Tobacco Use Types Packs/Day Years Used Date Smoking Tobacco: Never Assessed Sex and Gender Information Value Date Recorded Sex Assigned at Male 03/13/2022 10:35 AM EDT Legal Sex Male 10:35 AM EDT Gender Identity Male 03/13/2022 10:35 AM EDT Sexual Orientation Straight 03/13/2022 10 :35 AM EDT documented as of this encounter Miscellaneous Notes * Telephone Encounter - Yasmin Noe RN - 02/27/2023 11:51 AM EDT Call to pt. States he was calling in requesting a medication refill. Per pt, has 2d left of the amlodipine. Requesting more than one refill be sent. Pt aware of scheduled f/u with PCP on 03/19/23. RN advised will forward to PCP to review request. * Telephone Encounter - Bridget Burleson - 02/26/2023 9:59 AM EDT Tc from patient requesting a call back, in regards to multiple medications. No other details provided. documented in this encounter Plan of Treatment Upcoming Encounters Date Type Department Care Team ([facility] st Contact Info) Description 12/11/2024 11:30 AM EDT Office Visit [facility] MED & PEDS [address] [place] [address] Edis Thomas MD [address] [place] [address] documented as of this encounter Visit Diagnoses Diagnosis Essential hypertension Unspecified essential hypertension documented in this encounter Care Teams Octave Board Racker Relationship Specialty Start Date End Date Edis Thomas MD [address] [place] [address] PCP - General Internal Medicine 10/17/18 documented as of this encounter
== END 2024-09-23 11:15 | disposition home or self-care (01) ==
LOC: HO.HGS 10:54
PROVIDERS: PCP Internal Medicine; Visit Provider Surgery
DX: K42.9 Umbilical hernia without obstruction or gangrene (principal)
CPT/HCPCS: 99204

== ENCOUNTER → 2024-09-23 10:53 | Outpatient (BNVA) | payer MEDICARE, MEDICAID, SELFPAY | PROVIDERS: PCP Internal Medicine; Visit Provider Surgery | DX: K42.9 Umbilical hernia without obstruction or gangrene (principal) | CPT/HCPCS: 99202 ==

== ENCOUNTER 2024-10-15 11:20 | Day surgery (SDC) | payer MEDICARE, MEDICAID, SELFPAY ==
--- OUTSIDE RECORDS SUMMARY | 2024-09-25 12:08 | XMS_ITS | Encounter Summary ---
Author Organization [employer] Address [address] [facility] [address] [place] [address] Care Team Providers Care Used Car Make Ready Worker Name Role Phone Edis Thomas MD Primary Care Provider [phone] Reason for Visit * Reason Onset Date Comments call back requested 05/22/2024 Encounter Details Date Type Department Care Team (Late st Contact Info) Description 05/22/2024 Telephone [facility] MEDICINE [address] [place] [address] Edis Thomas MD [address] [place] [address] call back requested Social History Tobacco Use [...] 12/11/2024 11:30 AM EDT Office Visit [facility] MED & PEDS [address] [place] [address] Edis Thomas MD [address] [place] [address] documented as of this encounter Visit Diagnoses Diagnosis Chronic migraine without aura without status migrainosus, not intractable documented in this encounter Additional Health Concerns Assessment Noted Time PHQ-9 Depression Total Score: 0 11/29/19 24 10:51 AM EDT documented as of this encounter Care Teams Used Car Make Ready Worker Relationship Specialty Start Date End Date Edis Thomas MD [address] [place] [address] PCP - General Internal Medicine 10/17/18 documented as of this encounter
--- OUTSIDE RECORDS SUMMARY | 2024-09-25 12:08 | XMS_ITS | Encounter Summary ---
Author Organization [employer] Address [address] [facility] [address] [place] [address] Care Team Providers Care Numerical Control Router Operator Name Role Phone Edis Thomas MD Primary Care Provider [phone] Encounter Details Date Type Department Care Team ([facility] st Contact Info) Description 03/07/2024 Orders Only [facility] CHC MED & PEDS [address] [place], [place] [phone] Provider, MD Jesus Social History Tobacco Use [...] Description 12/11/2024 11:30 AM EDT Office Visit [facility] MED & PEDS [address] [place] [address] dEis Thomas MD [address] [place] [address] documented as of this encounter Procedures Procedure [...] documented as of this encounter Care Teams Numerical Control Router Operator Relationship Specialty Start Date End Date Edis Thomas MD [address] [place] [address] PCP - General Internal Medicine 10/17/18 documented as of this encounter
--- OUTSIDE RECORDS SUMMARY | 2024-09-25 12:08 | XMS_ITS | Encounter Summary ---
Author Organization [employer] Address 75 [facility] 7 [place] [address] Care Team Providers Care Turbine Room Attendant Name Role Phone Edis Thomas MD Primary Care Provider +1- [phone] Reason for Visit * Reason Onset Date Comments Med Refill 09/25/2023 Encounter Details Date Type Department Care Team (Late st Contact Info) Description 09/25/2023 Telephone [facility] MEDICINE [address] [place] [address] Edis Thomas MD [address] [place], [place] [phone] Med Refill Social History Tobacco Use Types [...] requesting medication refill. Medications needing refill : tsgxurtswd-ufehkjjtlukwo-blqjvabs 50-325-40 MG tablet To be sent to: [facility] [address] [place] [address] documented in this encounter Plan of Treatment Upcoming Encounters Date Type Department Care Team (Late st Contact Info) Description 12/11/2024 11:30 AM EDT Office Visit [facility] CH[facility] MED & PEDS [address] [place] [address] Edis Thomas MD [address] [place] [address] documented as of this encounter Visit Diagnoses Not on filedocumented in this encounter Care Teams Turbine Room Attendant Relationship Specialty Start Date End Date Edis Thomas MD [address] [place] [address] PCP - General Internal Medicine 10/17/18 documented as of this encounter
--- OUTSIDE RECORDS SUMMARY | 2024-09-25 12:08 | XMS_ITS | Encounter Summary ---
Author Organization [employer] Address [address] [place] [address] 7t [place] [address] Care Team Providers Care Petroleum Production Engineer Name Role Phone Edis Thomas MD Primary Care Provider [phone] [phone] Encounter Details Date Type Department Care Team ([facility] st Contact Info) Description 05/28/2024 Orders Only [facility] CHC MED & PEDS [address] [place], [place] [phone] Edis Thomas MD [address] [place] [address] Impaired fasting glucose (Primary Dx) Social History [...] Upcoming Encounters Date Type Department Care Team ([facility] st Contact Info) Description 12/11/2024 11:30 AM EDT Office Visit [facility] CHC MED & PEDS [address] [place] [address] Edis Thomas MD [address] [place] [address] documented as of this encounter Procedures Procedure Name Priority Date/Time Associated Diagnosis Comments GLUCOSE, RANDOM Routine 05/28/2024 12:34 PM EST Impaired fasting glucose documented in this encounter Results * (ABNORMAL) Glucose, Random, Serum (05/28/2024 12:34 PM EST) Glucose 152(H) 60 - 115 mg/dL [facility] Blood Venous blood specimen / Unknown 05/28/2024 12:34 PM EST 05/28/2024 2:20 PM EST us Edis Thomas MD LAB BLOOD ORDERABLES Final Result [facility] [address] [place] [address] [phone] documented in this encounter Visit Diagnoses Diagnosis Impaired fasting glucose- Primary documented in this encounter Additional Health Concerns Assessment Noted Time PHQ-9 Depression Total Score: 0 11/29/19 24 10:51 AM EDT documented as of this encounter Care Teams Petroleum Production Engineer Relationship Specialty Start Date End Date Edis Thomas MD [address] [place] [phone] PCP - General Internal Medicine 10/17/18 documented as of this encounter
--- OUTSIDE RECORDS SUMMARY | 2024-09-25 12:08 | XMS_ITS | Encounter Summary ---
Author Organization [employer] Address 75 [facility] 7t [place] [address] Care Team Providers Care Debt Recovery Officer Name Role Phone Edis Thomas MD Primary Care Provider [phone] Encounter Details Date Type Department Care Team ([facility] st Contact Info) Description 11/29/2023 Orders Only [facility] CHC MED & PEDS [address] [place], [place] [phone] Edis Thomas MD [address] [place] [address] Bilateral impacted cerumen (Primary Dx); Chronic migraine [...] AM EDT documented as of this encounter Functional Status * Over the past 2 weeks, how often have you been bothered by any of the following problems? Question Answer Date of Assessment Author Patient Health Questionnaire -2 Score 0 11/29/2023 10:51 AM Tracy Hernandez MA * Over the past 2 weeks, how often have you been bothered by any of the following problems? Question Answer Date of Assessment Author Little interest or pleasure in doing things Not at all 11/29/2023 10:51 AM Tracy Hernandez MA Feeling down, depressed, or hopeless Not at all 11/29/2023 10:51 AM Tracy Hernandez [place] Trouble falling or staying asleep, or sleeping too much Not at all 11/29/2023 10:51 AM Tracy Hernandez MA Feeling tired or having little energy Not at all 11/29/2023 10:51 AM Tracy Hernandez [place] Poor appetite or overeating Not at all 11/29/2023 10 :51 AM Tracy Hernandez MA Feeling bad about yourself - or that you are a failure or have let yourself or your family down Not at all 11/29/2023 10:51 AM Tracy Hernandez MA Trouble concentrating on things, such as reading the newspaper or watching television Not at all 11/29/2023 10:51 AM Tracy Hernandez MA Moving or speaking so slowly that other people could have noticed? Or the opposite - being so fidgety or restless that you have been moving around a lot more than usual. Not at all 11/29/2023 10:51 AM EDT Tracy Quintanilla MA Thoughts that you would be better off or hurting yourself in some way Not at all 11/29/2023 10:51 AM EDT Felix Quintanilla MA Patient Health Questionnaire-9 Score 0 11/29/2023 10:51 AM EDT Zaynab Quintanilla ra, [place] documented as of this encounter Plan of Treatment Upcoming Encounters Date Type Department Care Team (Late st Contact Info) Description 12/11/2024 11:30 AM EDT Office Visit [facility] MED & PEDS [address] [place] [address] Edis Thomas MD [address] [place] [address] documented as of this encounter Visit Diagnoses Diagnosis Bilateral impacted cerumen- Primary Impacted cerumen Chronic migraine without aura without status migrainosus, not intractable documented in this encounter Additional Health Concerns Assessment Noted Time PHQ-9 Depression Total Score: 0 11/29/19 24 10:51 AM EDT documented as of this encounter Care Teams Debt Recovery Officer Relationship Specialty Start Date End Date Edis Thomas MD [address] [place] [address] PCP - General Internal Medicine 10/17/18 documented as of this encounter
--- OUTSIDE RECORDS SUMMARY | 2024-09-25 12:08 | XMS_ITS | Encounter Summary ---
Author Organization [employer] Address 75 [facility] 7t [place] [address] Care Team Providers Care Crimping Machine Operator For Metal Name Role Phone Edis Thomas MD Primary Care Provider [phone] [phone] Encounter Details Date Type Department Care Team ([facility] st Contact Info) Description 06/19/2024 Orders Only [facility] CHC MED & PEDS [address] [place], [place] [phone] Edis Thomas MD [address] [place] [address] Social History Tobacco Use Types Packs/Day Years [...] Description 12/11/2024 11:30 AM EDT Office Visit [facility] MED & PEDS [address] [place] [address] Edis Thomas MD [address] [place] [address] documented as of this encounter Visit Diagnoses Not on filedocumented in this encounter Additional Health Concerns Assessment Noted Time PHQ-9 Depression Total Score: 0 11/29/19 24 10:51 AM EDT documented as of this encounter Care Teams Crimping Machine Operator For Metal Relationship Specialty Start Date End Date Edis Thomas MD [address] [place] [address] PCP - General Internal Medicine 10/17/18 documented as of this encounter
--- OUTSIDE RECORDS SUMMARY | 2024-09-25 12:08 | XMS_ITS | Clinical Summary ---
Author Organization [employer] Address [address] [place] [address] 7t [place] [address] Care Team Providers Care Outsole Cementer Machine Name Role Phone Edis Thomas MD Primary Care Provider +1- [phone] Allergies No known active allergies Medications Diclofenac [...] Description 09/04/2024 1:00 PM EDT Office Visit [facility] MED & PEDS [address] [place] [address] Edis Thomas MD Primary hypertension (Primary Dx); Impaired fasting glucose; Dietary counseling; Exercise counseling; Class 1 obesity due to excess calories with serious comorbidity and body mass index (BMI) of 31.0 to 31.9 in adult; Umbilical hernia without obstruction and without gangrene 09/04/2024 Travel 08/28/2024 Travel 08/26/2024 Patient Outreach [facility] [address] [place] [address] Edis Thomas MD Pre-visit Planning (SDOH screening negative and Tobacco screening negative) from Last 3 Months Immunizations Immunization Administration Dates Next Due Pneumococcal Conjugate PCV [...] Description 12/11/2024 11:30 AM EDT Office Visit [facility] MED & PEDS [address] [place] [address] Edis Thomas MD [address] [place] [address] Health Maintenance Due Date Last Done Comments [...] patient's age to complete this topic Meningococcal B Vaccine Aged Out No l onger eligible based on patient's age to complete [...] 8:54 AM EDT) Triglycerides 521(H) <150 mg/dL [facility] Comment:Desirable Triglyceri de: less than 150 mg/dLBorderline High Triglyceride 150-199 mg/dLHigh Triglyceride: 200-499 mg/dLVery High Triglyceride: greater than or equal to 5OO mg/dL Cholesterol 235(H) <200 mg/dL [facility] Comment:Desirable Cholestero l: less than 200 mg/dLBorderline High Cholesterol: 200-239 mg/dLHigh Cholesterol: greater than 239 mg/dL LDL Cholesterol Calculated TNP <100 mg/dL [facility] Comment:Unable to calculate the LDL. The formula of Friedwald,Goodrich, and Bianka is only valid if the triglycerides areless than 400 mg/dl. HDL Cholesterol 29(L) >40 mg/dL [facility] Comment:Desirable HDL: great er than 40 mg/dL Note: This HDL assay may give artificially low results in patients with liver disease. Blood Venous blood specimen / Unknown 12/04/2023 8:54 AM EDT 12/04/2023 10:02 AM EDT us Edis Thomas MD LAB BLOOD ORDERABLES Final Result [facility] [address] [place] [phone] * Cologuard?? colon cancer screening (12/03/2023 11:30 AM EDT) Cologuard Result Negative Negative 12/07/19 24 6:38 PM EDT [facility] (CLIA #:[id number]) Comment: NEGATIVE TEST RESULT. A negative Cologuard [...] screened with both Cologuard and colonoscopy. (Carolina Donald al, N Engl J Med 2014;370(14):1286- 1297) The normal value (reference range) for this assay is negative. COLOGUARD RE-SCREENING RECOMMENDATION: Periodic colorectal cancer screening is an important part of preventive healthcare for asymptomatic individuals at average risk for colorectal cancer. ??Following a negative Cologuard result, the [place] Cancer Society and U.S. Multi-Society Task Force screening guidelines recommend a Cologuard re-screening interval of 3 years. References: [place] [employer] Society Guideline for Colorectal Cancer Screening: https://www.cancer.org/cancer/xgbfm-dhioth-kqvpll/iybcqojrf-overhyqaw-vnhvrjt/ac s-rec ommendations.html.; Mingo DK, Norberto CR, Sudha BillK, Colorectal Cancer Screening: Recommendations for Physicians and Patients from the U.S. Multi-Society Task Force on Colorectal Cancer Screening , Am J Gastroenterology 2017; 112:4197-4962. TEST DESCRIPTION: Composite algorithmic analysis of stool [...] Lucas et al, N Engl J Med 2014;370(14):7938-0727.) Cologuard may produce a false negative or false positive result (no colorectal cancer or precancerous polyp present at colonoscopy follow up). A negative Cologuard test result does not guarantee the absence of CRC or advanced adenoma (pre-cancer). The current Cologuard screening interval is every 3 years. ([place] Cancer Society and U.S. Multi-Society Task Force). Cologuard performance data in a 10,000 patient pivotal study using colonoscopy as the reference method can be accessed at the following location: www.[employer]/results. Additional description of the Cologuard test process, warnings and precautions can be found at www.[employer]ia.Luristic. Stool specimen (specimen) 12/03/2023 11:30 AM EDT 12/04/2023 1:44 PM EDT Edis Thomas MD LAB MOLECULAR DIAGNOSTICS O RDERABLES Final Result [facility] (CLIA #:[id number]) [place] [address], * Hepatitis Panel, General (04/03/2023 8:58 AM EST) Hepatitis A IgM Nonreactive Nonreactive [facility] Comment:IgM antibodies to MENEZES V not detected; does not exclude earlyacute or recovered HAV infection. ~Hepatitis B Surface Antibody NONREACTIVE Nonreactive [facility] Comment:Nonreactive: < 8.00 mIU/mL Hepatitis B Core Antibody Nonreactive Nonreactive [facility] Hepatitis C Antibody Nonreactive Nonreactive [facility] Comment:Antibodies to HCV no t detected; does not exclude early acuteHCV infection. Hepatitis B Surface Ag Negative Negative [facility] 04/03/2023 8:58 AM EST 04/03/2023 11:12 AM EST us Generic External Data Provider LAB BLOOD ORDERAB LES Final Result [facility] [address] [place] [address] [phone] from Last 3 Months or Most Recently Relevant to Health Maintenance Insurance MEDICARE [facility] Care Teams Outsole Cementer Machine Relationship Specialty Start Date End Date Edis Thomas MD [address] [place] [address] [place] [address] PCP - General Internal Medicine 10/17/18
--- OUTSIDE RECORDS SUMMARY | 2024-09-25 12:08 | XMS_ITS | Encounter Summary ---
Author Organization [employer] Address 75 [facility] 7 [place] [address] Care Team Providers Care Head Turbine Operator Name Role Phone Edis Thomas MD Primary Care Provider [phone]- [phone] Reason for Visit * Reason Onset Date Comments Med Refill 05/22/2024 Encounter Details Date Type Department Care Team (Late st Contact Info) Description 05/22/2024 Telephone [facility] MEDICINE [address] [place] [address] Edis Thomas MD [address] [place] [address] Med Refill Social History Tobacco Use Types [...] requesting medication refill. Medications needing refill : xjnqtdyxtm-opppubaohzazs-gquefuzk 50-325-40 MG tablet To be sent to: [facility] [address] [place] [address] documented in this encounter Plan of Treatment Upcoming Encounters Date Type Department Care Team (Late st Contact Info) Description 12/11/2024 11:30 AM EDT Office Visit [facility] MED & PEDS [address] [place] [address] Edis Thomas MD [address] [place] [address] documented as of this encounter Visit Diagnoses Not on filedocumented in this encounter Additional Health Concerns Assessment Noted Time PHQ-9 Depression Total Score: 0 11/29/19 24 10:51 AM EDT documented as of this encounter Care Teams Head Turbine Operator Relationship Specialty Start Date End Date Edis Thomas MD [address] [place] [address] PCP - General Internal Medicine 10/17/18 documented as of this encounter
--- OUTSIDE RECORDS SUMMARY | 2024-09-25 12:08 | XMS_ITS | Encounter Summary ---
Author Organization [employer] Address [address] [place] [address] Care Team Providers Care Contract Administration Manager Name Role Phone Edis Thomas MD Primary Care Provider +1- [phone] Reason for Visit * Reason Onset Date Comments Med Refill 02/26/2023 Encounter Details Date Type Department Care Team (Late st Contact Info) Description 02/26/2023 Telephone [facility] MED & PEDS [address] [place] [address] Edis Thomas MD [address] [place] [address] Med Refill Social History Tobacco Use Types [...] [facility] MED & PEDS [address] [place] [address] Edis Thomas MD [address] [place] [address] documented as of this encounter Visit Diagnoses Not on filedocumented in this encounter Care Teams Contract Administration Manager Relationship Specialty Start Date End Date Edis Thomas MD [address] [place] [address] PCP - General Internal Medicine 10/17/18 documented as of this encounter
--- OUTSIDE RECORDS SUMMARY | 2024-09-25 12:08 | XMS_ITS | Encounter Summary ---
Author Organization [employer] Address [address] [place] [address] Care Team Providers Care Mucking Machine Operator Name Role Phone Edis Thomas MD Primary Care Provider [phone]- [phone] Reason for Visit * Reason Onset Date Comments Medication Question 02/26/2023 Encounter Details Date Type Department Care Team ([facility] st Contact Info) Description 02/26/2023 Telephone [facility] CHC MED & PEDS [address] [place] [address] Edis Thomas MD [address] [place] [address] Medication Question Social History Tobacco Use Types [...] Upcoming Encounters Date Type Department Care Team ([facility] st Contact Info) Description 12/11/2024 11:30 AM EDT Office Visit [facility] MED & PEDS [address] [place] [address] Edis Thomas MD [address] [place] [address] documented as of this encounter Visit Diagnoses Diagnosis Essential hypertension Unspecified essential hypertension documented in this encounter Care Teams Mucking Machine Operator Relationship Specialty Start Date End Date Edis Thomas MD [address] [place] [address] PCP - General Internal Medicine 10/17/18 documented as of this encounter
[2024-10-13 11:12] VITALS: BMI 31.0
[2024-10-15] VITALS (7 sets, daily range): BP systolic 115–136; BP diastolic 71–84; PULSE 68–83; RESP 14–16; TEMP 36.1–36.7; O2SAT 96–98; BMI 29.7
--- NOTE | 2024-10-15 12:11 | MHC.SHP ---
Pre-Procedural Eval Section A - 24 Hr Update-Section A only Date of Service: 10/15/24 The patient is an INPATIENT: No Changes since office visit: Yes Patient answered all questions; No Cold of Flu in the past 2 weeks, No New Medical Problems and No Changes in Medication The patient has been examined within 24 hours of the surgical procedure. The History & Physical has been completed within 30 days and I have reviewed it.: Yes Section B - Complete if H&P > 30 days Chief Complaint: Umbilical hernia without obstruction or gangrene Allergies: Allergies Allergy/AdvReac Type Severity Reaction Status Date / Time No Known Allergies Allergy Verified 10/15/24 11:59 Plan Diagnosis/Plan: Unchanged I have reviewed the history and physical and performed a pertinent physical examination on my patient. No changes have occurred unless specified. Time Spent With Patient Time: Total time managing care of this patient today ____ minutes.
[2024-10-15] MEDS: Lactated Ringers 1,000 ML 100 ML IVCONT (12:26)
--- NOTE | 2024-10-15 13:15 | P.CONAN_ITS ---
Documented by User: Amrita Willingham NP 10/13/24 15:06 HPI - Anesthesia Eval Consult details Narrative: 69yo M for Hernia Umbilical Reducible with mesh PMFSH Active Problems Active Problems: All Active Problems Umbilical hernia without mention of obstruction or gangrene (Acute) Erectile dysfunction (Acute) BPH loc w urin obs/LUTS (Acute) Osteoarthritis of hands, bilateral (Acute) Seropositive rheumatoid arthritis (Acute) Knee pain, bilateral (Acute) Bilateral hand pain (Acute) Elevated PSA (Acute) Past Medical History Medical History HTN (hypertension) Migraine Elevated PSA Family History Family History Mother Psoriatic arthritis Father Rheumatoid arthritis Surgical History Surgical History History of shoulder surgery Hx of knee surgery Social History Social History Are you a primary healthcare account manager to a significant other at home: No Do you presently have visiting nurse or other home services: No Alcohol intake: current Alcohol intake frequency: holidays/special occasions only Patient Tobacco Use Status: Current everyday Tobacco user Tobacco use type: Cigarette Cigarettes Per Day: 4 Years Smoked: 50 Use of substances other than those prescribed or required for medical reasons: Yes Substance Use Frequency: Daily Have you been hit, kicked, punched, or otherwise hurt by someone within the past year? If so, by whom?: No Are you DNR?: No Advance Directives: No Advance Directives Information Provided: Yes Poor oral hygiene: Yes Meds Allergies Allergy/AdvReac Type Severity Reaction Status Date / Time No Known Allergies Allergy Verified 10/15/24 11:59 Home Medications ?Medication ?Instructions ?Recorded ?Confirmed ?Last Taken ?Type dhvlduhmuu-avhoowodkivqv-xixwguec tab PO DAILY PRN Migraine Headache 01/02/22 09/23/24 Unknown History 50 mg-325 mg-40 mg tablet acetaminophen 650 mg 650 mg PO QAM 01/10/23 10/15/24 Unknown History tablet,extended release (Tylenol 8 Hour) amlodipine 5 mg tablet 5 mg PO DAILY 01/10/23 10/15/24 10/15/24 History Exam Height,Weight and Vital Signs: Height 5 ft 8.5 in Weight 93.894 kg Assessment and Plan Assessment Anesthesia Assessment: Chart Reviewed Documented by User: Ladonna Yung DO 10/15/24 13:16 PMF Past Medical History Medical History HTN (hypertension) Migraine Elevated PSA Family History Family History Mother Psoriatic arthritis Father Rheumatoid arthritis Family history of problems with anesthesia: No Surgical History Surgical History History of shoulder surgery Hx of knee surgery History of Problems with Anesthesia: No Social History Social History Are you a primary healthcare account manager to a significant other at home: No Do you presently have visiting nurse or other home services: No Alcohol intake: current Alcohol intake frequency: holidays/special occasions only Patient Tobacco Use Status: Current everyday Tobacco user Tobacco use type: Cigarette Cigarettes Per Day: 4 Years Smoked: 50 Use of substances other than those prescribed or required for medical reasons: Yes Substance Use Frequency: Daily Have you been hit, kicked, punched, or otherwise hurt by someone within the past year? If so, by whom?: No Are you DNR?: No Advance Directives: No Advance Directives Information Provided: Yes Poor oral hygiene: Yes Meds Allergies Allergy/AdvReac Type Severity Reaction Status Date / Time No Known Allergies Allergy Verified 10/15/24 11:59 Home Medications ?Medication ?Instructions ?Recorded ?Confirmed ?Last Taken ?Type buubranhsd-dpfrlwrhrwdon-idigcjdn tab PO DAILY PRN Migraine Headache 01/02/22 09/23/24 Unknown History 50 mg-325 mg-40 mg tablet acetaminophen 650 mg 650 mg PO QAM 01/10/23 10/15/24 Unknown History tablet,extended release (Tylenol 8 Hour) amlodipine 5 mg tablet 5 mg PO DAILY 01/10/23 10/15/24 10/15/24 History Exam Exam Date and Time: 10/15/24 1310 Height,Weight and Vital Signs: Height 5 ft 8.5 in Weight 93.894 kg Vital Signs Temperature 98.0 F 10/15/24 12:07 Pulse Rate 83 10/15/24 12:07 Respiratory Rate 14 10/15/24 12:07 Blood Pressure 136/84 10/15/24 12:07 Pulse Oximetry 96 10/15/24 12:07 Oxygen Delivery Method Room Air 10/15/24 12:07 Temperature 98.0 F 10/15/24 12:07 Pulse Rate 83 10/15/24 12:07 Respiratory Rate 14 10/15/24 12:07 Blood Pressure 136/84 10/15/24 12:07 Pulse Oximetry 96 10/15/24 12:07 Oxygen Delivery Method Room Air 10/15/24 12:07 Airway Mallampati Class: III TM Dist: >3cm Neck ROM: Full Loose/Missing/Broken Teeth: Yes (dentures at home, poor remaining dentition) Heart: S1S2 Lungs: Diminished B/L Assessment and Plan Assessment Anesthesia Assessment: Anesthesia Plan Discussed and Chart Reviewed Final Anesthetic Review Family History of Problems with Anesthesia: No History of Problems with Anesthesia: No NPO: Yes ASA Class: II Final Preanesthetic Review: No Changes in Pt Med Stat, Meds/Allgs Chart Reviewed, Consent Obtained/Reviewed and Anes Risks/Benef Reviewed Patient Risk: Low Procedure Risk: Low Anesthetic Plan Anesthetic Plan: GA and Agree w/ Assess. and Plan Disposition: Standard PACU
--- NOTE | 2024-10-15 14:19 | P.OP_ITS ---
Operative Note Operative Note Date of Service: 10/15/24 Narrative: Preoperative diagnosis: Reducible umbilical hernia, 4 cm diameter Postoperative diagnosis: Same Procedure: Repair of reducible umbilical hernia with mesh Surgeon: Blake Pierson MD Flight Crew Ordnanceman: Clifford Villela PA-C Anesthesia: General LMA Indications for procedure: 69-year-old male patient presenting with a palpable umbilical hernia which is increasing in size and causing discomfort. On examination the hernias reducible measuring approximately 4 cm in diameter. Operative findings: 4 cm defect at the umbilicus. Hernia repaired with a 6.4 cm round Ventralex mesh Specimen: None Estimated blood loss: 2 mL Complications: None Procedure details: Patient was brought to the OR and placed in a supine position. After administering general anesthesia the patient's abdomen was prepped with ChloraPrep and draped in a sterile fashion. A surgical time-out was called and the consent confirmed. Patient received preoperative antibiotics and Venodyne boots were in place. Local anesthesia consisting of 0.5% Sensorcaine was then infiltrated around the umbilicus. A curvilinear incision was made around the upper surface of the umbilicus in a reverse fashion measuring approximately 4 cm. This was carried out through subcutaneous tissue and down to the umbilical sac. The sac was then dissected circumferentially. Umbilical skin was taken off the sac using electrocautery. The sac was then reduced into the abdominal cavity. A preperitoneal space was then created using electrocautery. Hemostasis was assured at all times using electrocautery. A 6.4 cm round Ventralex mesh was then obtained. This was deployed within the preperitoneal space and secured in 4 quadrants using a 0 Tycron suture. Fascia was then closed over the mesh including the mesh in the closure using npiyrv-gd-[id number] 0 Tycron sutures. Wounds were then irrigated with saline solution and suctioned dry. Approximately 4 mL of Zenrelef was instilled below the fascia prior to complete closure of the fascia. Umbilical skin was then reapproximated to the fascia using a 3-0 Polysorb suture. Dermis was reapproximated using interrupted 3-0 Polysorb sutures. Skin was closed using a subcuticular 4-0 Polysorb suture. Sterile dressings consisting of Steri-Strips, 4 x 4 gauze and Tegaderm were then applied. The patient tolerated the procedure well. Sponge, instrument, and needle counts reported as correct. The patient was transferred to PACU in stable condition.
== END 2024-10-15 15:25 | disposition home or self-care (01) ==
PROVIDERS: PCP Internal Medicine; Visit Provider Surgery
PROC: (CPT 49593; principal; 2024-10-15 13:50)
DX: K42.9 Umbilical hernia without obstruction or gangrene (principal); R97.20 Elevated prostate specific antigen [PSA]; I10 Essential (primary) hypertension; G43.909 Migraine, unspecified, not intractable, without status migrainosus; Z79.899 Other long term (current) drug therapy; Z98.890 Other specified postprocedural states; F17.210 Nicotine dependence, cigarettes, uncomplicated
CPT/HCPCS: 49593; C1781; C9088; J0131; J0690; J1100; J2003; J2371; J2405; J2704; J3010

== ENCOUNTER → 2024-10-15 11:20 | Outpatient (BNV) | payer MEDICARE, MEDICAID, SELFPAY | PROVIDERS: PCP Internal Medicine; Visit Provider Surgery | DX: K42.9 Umbilical hernia without obstruction or gangrene (principal) | CPT/HCPCS: 49593 ==

== ENCOUNTER 2024-10-24 09:54 | Outpatient (AMB) | payer MEDICARE, MEDICAID, SELFPAY ==
--- NOTE | 2024-10-24 09:57 | MHC.OFFVIS ---
Vital Signs 10/24/24 10:04 Height 5 ft 8.5 in Weight 204 lb BMI 30.6 BP 143/79 H Blood Pressure Location Lt brachial Position Sitting Pulse 86 Intake Visit Reasons: S/P umbilical hernia w/mesh Intake Note: Patient is seen in office for post op assessment post umbilical hernia repair. Pt c/o: sore and tender, denies any signs of infection Metal Sprayer Required: No Accompanied by: Self / Same As Patient Allergies No Known Allergies Allergy (Verified 10/15/24 11:59) Medication List - Last Reconciled 10/24/24 by Blake Pierson MD acetaminophen ER (Tylenol 8 Hour) 650 mg PO QAM amlodipine 5 mg PO DAILY hzfbdpseyk-ekkimfcjitxqc-xhbi 50-325-40 mg tabs PO DAILY PRN finasteride 5 mg PO DAILY 90 days oxycodone 5 mg PO Q6H PRN sildenafil 100 mg PO DAILY PRN 30 days tadalafil 5 mg PO DAILY 90 days terazosin 5 mg PO BEDTIME 90 days HPI Comments Details: 69-year-old male patient returning 1 week following repair of an umbilical hernia with mesh on 10/15/2024. The hernias repaired using a 6.4 cm Ventralex mesh. He tolerated the procedure well and denies any problems following the surgery. He currently denies any significant abdominal pain, nausea, vomiting, diarrhea or constipation. He denies any discharge from the incision. [facility] Medical History HTN (hypertension) Migraine Elevated PSA Surgical History (Updated 10/22/24 @ 15:57 by ROXIE Hensley) History of umbilical hernia repair (10/15/24) History of shoulder surgery Hx of knee surgery Family History Mother Psoriatic arthritis Father Rheumatoid arthritis Social History Are you a primary life care planner to a significant other at home: No Do you presently have visiting nurse or other home services: No Alcohol intake: current Alcohol intake frequency: holidays/special occasions only Patient Tobacco Use Status: Current everyday Tobacco user Tobacco use type: Cigarette Cigarettes Per Day: 4 Years Smoked: 50 Physical Exam Const General: healthy appearing Nutritional Appearance: well nourished Orientation/consciousness: patient oriented x3 Resp Effort & Inspection: normal respiratory effort GI Other: Transverse abdominal incision is clean, dry, and intact without redness or discharge. No hernia noted with Valsalva maneuvers. Abdomen image: 1. Incision periumbilical Skin Other: Warm, dry, no rash Neuro General: patient oriented x3 Extrem Other: No edema Assessment & Plan Assessment & Plan (1) Umbilical hernia without mention of obstruction or gangrene: Code(s): K42.9 - Umbilical hernia without obstruction or gangrene Category: Medical Qualifiers: Obstruction and gangrene presence: without obstruction or gangrene Qualified Code(s): K42.9 - Umbilical hernia without obstruction or gangrene Plan 69-year-old male patient returning 1 week following repair of an umbilical hernia with mesh. He tolerated the procedure well and his wounds are healing nicely. He should continue to avoid lifting greater than 10 lb should return in 1 month for follow-up examination. Coding Level of Care Code Global (06491) Diagnoses Umbilical hernia without obstruction and without gangrene K42.9 Obstruction and gangrene presence: without obstruction or gangrene
[2024-10-24 10:04] VITALS: BP 143/79; PULSE 86; BMI 30.6
--- OUTSIDE RECORDS SUMMARY | 2024-10-24 10:35 | XMS_ITS | Encounter Summary ---
Author Organization [employer] Address [address] [place] [address] Care Team Providers Care Bait Packer Name Role Phone Edis Thomas MD Primary Care Provider [phone] Encounter Details Date Type Department Care Team ([facility] st Contact Info) Description 10/17/2024 Orders Only [facility] MED & PEDS [address] [place], [place] [phone] Edis Thomas MD [address] [place] [address] Chronic migraine without aura without status migrainosus, not intractable (Primary Dx) Social History Tobacco Use Types [...] Description 12/11/2024 11:30 AM EDT Office Visit [facility] MED & PEDS [address] [place] [address] Edis Thomas MD [address] [place] [address] documented as of this encounter Visit Diagnoses Diagnosis Chronic migraine without aura without status migrainosus, not intractable- Primary documented in this encounter Additional Health Concerns Assessment Noted Time PHQ-9 Depression Total Score: 0 11/29/19 24 10:51 AM EDT documented as of this encounter Care Teams Bait Packer Relationship Specialty Start Date End Date Edis Thomas MD [address] [facility] [place] [address] PCP - General Internal Medicine 10/17/18 documented as of this encounter
== END 2024-10-24 10:13 | disposition home or self-care (01) ==
LOC: HO.HGS 09:55
PROVIDERS: PCP Internal Medicine; Visit Provider Surgery
DX: K42.9 Umbilical hernia without obstruction or gangrene (principal)
CPT/HCPCS: 99212

== ENCOUNTER → 2024-10-24 09:54 | Outpatient (BNVA) | payer MEDICARE, MEDICAID, SELFPAY | PROVIDERS: PCP Internal Medicine; Visit Provider Surgery | DX: K42.9 Umbilical hernia without obstruction or gangrene (principal) | CPT/HCPCS: 99212 ==

== ENCOUNTER 2024-10-30 10:50 | Outpatient (AMB) | payer MEDICARE, MEDICAID, SELFPAY ==
--- NOTE | 2024-10-30 11:00 | MHC.OFFVIS ---
Intake Visit Reasons: Cysto Intake Note: Patient is present for Cystoscopy Urology Medication:TERAZOSIN,FINASTERIDE,TADALAFIL Antibiotic Allergy:NONE Blood Thinner:NONE Lot:[id number] Exp:09/19/26 Building Construction Inspector Required: No Allergies No Known Allergies Allergy (Verified 10/30/24 11:01) HPI Comments Details: Osmar is a pleasant male. He is a patient of Dr. Butcher. He is seen for the following urologic reasons - lower urinary tract symptoms - erectile dysfunction Six-month follow-up Combination finasteride and terazosin Had planned cystoscopy Has done very well from terazosin Minimal nocturia Would like to continue Lower urinary tract symptoms Progressive Nocturia x2 down from 4 Prior prostate procedure many years ago Assisted by daily tadalafil with on demand sildenafil Erectile dysfunction Minimal responsiveness to 100 mg sildenafil on demand Has not tried daily medications Background arthritis on methotrexate Cardiovascular risk factors high blood pressure on medications PSA 07/31 4.1, 09/04 6.6, 05/06 1.7 PFSH Medical History HTN (hypertension) Migraine Elevated PSA Surgical History (Updated 10/22/24 @ 15:57 by ROXIE Hensley) History of umbilical hernia repair (10/15/24) History of shoulder surgery Hx of knee surgery Family History Mother Psoriatic arthritis Father Rheumatoid arthritis Social History Are you a primary manager progressive care to a significant other at home: No Do you presently have visiting nurse or other home services: No Alcohol intake: current Alcohol intake frequency: holidays/special occasions only Patient Tobacco Use Status: Current everyday Tobacco user Tobacco use type: Cigarette Cigarettes Per Day: 4 Years Smoked: 50 Review of Systems Const Denies chills and Denies fever(s) Card Reports no additional complaints and Denies syncope Resp Denies cough GI Denies abdominal pain and Denies heartburn Reports as per HPI and Denies change in libido Neuro Denies syncope Psych Denies change in libido Endo Denies change in libido Physical Exam Const General: cooperative, healthy appearing, comfortable and no acute distress Orientation/consciousness: patient oriented x3 HEENT Face and sinus: Yes normal facial exam Mouth: moist mucous membranes Neck Neck: Yes normal visual inspection, Yes full ROM and Yes trachea midline Chest Chest palpation & inspection: normal inspection of the chest Resp Effort & Inspection: normal respiratory effort, able to speak in complete sentences and no respiratory distress GI Inspection: Yes normal to inspection Back/Spine/Pelvis Cervical Spine: normal cervical lordosis Thoracic/Lumbar Spine: thoracic and lumbar spine normal to inspection Skin General skin exam: no rashes or lesions noted Neuro General: patient oriented x3, gait normal, tone normal and moves all extremities Extrem General: Yes normal to inspection and Yes capillary refill normal Results AMB Urinalysis, Automated UA Leukoctes 0 Eliazar/uL Last Edit by QUIANA Ontiveros on 10/30/24 11:14 UA Nitrite Negative Last Edit by Low Pratt CCM on 10/30/24 11:14 UA Urobilinogen 0.2 mg/dL Last Edit by Low Pratt CCM on 10/30/24 11:14 UA Protein 15 mg/dL Last Edit by Low Pratt CCM on 10/30/24 11:14 UA pH 6.0 Last Edit by Low Pratt CCM on 10/30/24 11:14 UA Blood 0 Javier/uL Last Edit by Low Pratt CCM on 10/30/24 11:14 UA Specific Dwight 1.015 Last Edit by Low Pratt CCM on 10/30/24 11:14 UA Ketone Negative Last Edit by Low Pratt CCM on 10/30/24 11:14 UA Bilirubin 0 mg/dL Last Edit by Low Pratt CCM on 10/30/24 11:14 UA Glucose 250 mg/dL Last Edit by Low Pratt CCM on 10/30/24 11:14 Results Reviewed Results Reviewed: Laboratory Last Values Urine pH (Auto) 6.0 10/30/24 11:13 Specific Dwight (Auto) 1.015 10/30/24 11:13 Urine Protein (Auto) 15 mg/dL 10/30/24 11:13 Glucose (UA)(Auto) 250 mg/dL 10/30/24 11:13 Urine Ketones (Auto) Negative 10/30/24 11:13 Urine Blood (Auto) 0 Javier/uL 10/30/24 11:13 Urine Nitrite (Auto) Negative 10/30/24 11:13 Urine Bilirubin (Auto) 0 mg/dL 10/30/24 11:13 Urine Urobilinogen (Auto) 0.2 mg/dL 10/30/24 11:13 Leukocyte Esterase (Auto) 0 Eliazar/uL 10/30/24 11:13 Assessment & Plan Assessment & Plan (1) BPH loc w urin obs/LUTS: Code(s): N40.1 - Benign prostatic hyperplasia with lower urinary tract symptoms Category: Medical (2) Elevated PSA: Code(s): R97.20 - Elevated prostate specific antigen [PSA] Category: Medical Plan Refill finasteride and terazosin Yearly follow-up Orders: Orders AMB Urinalysis Automated Today Z13.9 - Encounter for screening, unspecified Medications: Refilled finasteride 5 mg PO DAILY 90 tabs 3RF 90 days N13.8 - Other obstructive and reflux uropathy, N40.1 - Benign prostatic hyperplasia with lower urinary tract symptoms, R33.9 - Retention of urine, unspecified terazosin 5 mg PO BEDTIME 90 caps 3RF 90 days N40.1 - Benign prostatic hyperplasia with lower urinary tract symptoms, R35.0 - Frequency of micturition Discontinued oxycodone Partial Fill upon patient request. Discontinued Reason: Patient Completed Course 5 mg PO Q6H PRN 15 tabs 0RF pain (scale score 7-10) tadalafil Daily medication Discontinued Reason: Patient Completed Course 5 mg PO DAILY 90 days 90 tabs 1RF BPH N40.1 - Benign prostatic hyperplasia with lower urinary tract symptoms, N52.9 - Male erectile dysfunction, unspecified Patient Instructions: This note is constructed using voice recognition software. While every effort has been made to ensure accuracy adoption social worker errors may have been included. Imaging studies, laboratory and physical exam results were discussed and reviewed in detail. No major barriers to patient understanding were identified. An opportunity to ask questions regarding the treatment plan was provided. All questions were answered. The patient expressed understanding and agreement with the above treatment plan. The patient is aware they should contact our office by phone for worsening of their current condition or the appearance of new urologic symptoms. Compliance is encouraged with any medications and followup testing that is ordered. It is a privilege to participate in the urologic care of your patient. If you have any questions or concerns regarding treatment for the above conditions, or other urologic issues, please do not hesitate to contact me. The office telephone contact is [phone]. Sincerely, Dr Thiago Gross MD, [facility] - Urology Compassionate Specialist Care for the Genitourinary System Coding Level of Care Code Est Pt Level 3 (55249) Complex EM visit Add On G2211 Diagnoses BPH loc w urin obs/LUTS N40.1 Elevated PSA R97.20
--- OUTSIDE RECORDS SUMMARY | 2024-10-30 12:24 | XMS_ITS | Encounter Summary ---
Author Organization [employer] Address [address] [place] [address] [address] [place] [address] Care Team Providers Care Director Life Sales Name Role Phone Edis Thomas MD Primary Care Provider [phone]- [phone] Encounter Details Date Type Department Care Team ([facility] st Contact Info) Description 10/17/2024 Orders Only [facility] CHC MED & PEDS [address] [place], [place] [phone] Edis Thomas MD [address] [place] [address] Chronic migraine without aura without status migrainosus, [...] 11:30 AM EDT Office Visit [facility] MED & PEDS [address] [place] [address] Edis Thomas MD [address] [place] [address] documented as of this encounter Visit Diagnoses Diagnosis Chronic migraine without aura without status migrainosus, not intractable- Primary documented in this encounter Additional Health Concerns Assessment Noted Time PHQ-9 Depression Total Score: 0 11/29/19 24 10:51 AM EDT documented as of this encounter Care Teams Director Life Sales Relationship Specialty Start Date End Date Edis Thomas MD [address] [place] [address] PCP - General Internal Medicine 10/17/18 documented as of this encounter
== END 2024-10-30 11:38 | disposition home or self-care (01) ==
LOC: HO.HUSH 10:51
PROVIDERS: PCP Internal Medicine; Visit Provider Urology
DX: N40.1 Benign prostatic hyperplasia with lower urinary tract symptoms (principal); R97.20 Elevated prostate specific antigen [PSA]; Z13.9 Encounter for screening, unspecified
CPT/HCPCS: 99213; G2211

== ENCOUNTER → 2024-10-30 10:50 | Outpatient (BNVA) | payer MEDICARE, MEDICAID, SELFPAY | PROVIDERS: PCP Internal Medicine; Visit Provider Urology | DX: N40.1 Benign prostatic hyperplasia with lower urinary tract symptoms (principal); R97.20 Elevated prostate specific antigen [PSA] | CPT/HCPCS: 81003; 99212 ==

== ENCOUNTER 2024-11-28 08:44 | Outpatient (AMB) | payer MEDICARE, MEDICAID, SELFPAY ==
--- OUTSIDE RECORDS SUMMARY | 2024-11-28 08:49 | XMS_ITS | Encounter Summary ---
Author Organization [employer] Address [address] [place] [address] [address] [place] [address] Care Team Providers Care Patient Care Specialist Name Role Phone Edis Thomas MD Primary Care Provider [phone]- [phone] Encounter Details Date Type Department Care Team ([facility] st Contact Info) Description 10/17/2024 Orders Only [facility] CHC MED & PEDS [address] [place], [place] [phone] Edis Thomas MD [address] [place] [address] Chronic migraine without aura without status migrainosus, [...] Description 12/11/2024 11:30 AM EDT Office Visit [facility] MED & PEDS [address] [place] [address] Edis Thomas MD [address] [place] [address] documented as of this encounter Visit Diagnoses Diagnosis Chronic migraine without aura without status migrainosus, not intractable- Primary documented in this encounter Additional Health Concerns Assessment Noted Time PHQ-9 Depression Total Score: 0 11/29/19 24 10:51 AM EDT documented as of this encounter Care Teams Patient Care Specialist Relationship Specialty Start Date End Date Edis Thomas MD [address] [place] [address] PCP - General Internal Medicine 10/17/18 documented as of this encounter
--- NOTE | 2024-11-28 08:58 | MHC.OFFVIS ---
Intake Visit Reasons: 1mth S/P umbilical hernia w/mesh Allergies No Known Allergies Allergy (Verified 10/30/24 11:01) Medication List - Last Reconciled 11/28/24 by Blake Pierson MD acetaminophen ER (Tylenol 8 Hour) 650 mg PO QAM amlodipine 5 mg PO DAILY bafriicwso-tpwglthawtxme-jnag 50-325-40 mg tabs PO DAILY PRN finasteride 5 mg PO DAILY 90 days terazosin 5 mg PO BEDTIME 90 days HPI Comments Details: 69-year-old male patient returning one-month following repair of an umbilical hernia with mesh on 10/15/2024. The hernias repaired using a 6.4 cm Ventralex mesh. He feels well and denies any ongoing abdominal symptoms. He denies any bleeding or discharge from the incision. [facility] Medical History HTN (hypertension) Migraine Elevated PSA Surgical History (Updated 10/22/24 @ 15:57 by ROXIE Hensley) History of umbilical hernia repair (10/15/24) History of shoulder surgery Hx of knee surgery Family History Mother Psoriatic arthritis Father Rheumatoid arthritis Social History Are you a primary childcare worker to a significant other at home: No Do you presently have visiting nurse or other home services: No Alcohol intake: current Alcohol intake frequency: holidays/special occasions only Patient Tobacco Use Status: Current everyday Tobacco user Tobacco use type: Cigarette Cigarettes Per Day: 4 Years Smoked: 50 Physical Exam Const General: healthy appearing Nutritional Appearance: well nourished Orientation/consciousness: patient oriented x3 Resp Effort & Inspection: normal respiratory effort GI Other: Transverse abdominal incision is clean, dry, and intact without redness or discharge. No hernia noted with Valsalva maneuvers. Skin Other: Warm, dry, no rash Neuro General: patient oriented x3 Extrem Other: No edema Assessment & Plan Assessment & Plan (1) Umbilical hernia without mention of obstruction or gangrene: Code(s): K42.9 - Umbilical hernia without obstruction or gangrene Category: Medical Qualifiers: Obstruction and gangrene presence: without obstruction or gangrene Qualified Code(s): K42.9 - Umbilical hernia without obstruction or gangrene Plan 69-year-old male patient returning 1 month following repair of an umbilical hernia with mesh. He tolerated the procedure well and his wounds are healing nicely. Examination reveals well-healed incision with no evidence of hernia recurrence or infection. He may resume normal activity without restrictions and should follow up as needed. Coding Level of Care Code Global (03376) Diagnoses Umbilical hernia without obstruction and without gangrene K42.9 Obstruction and gangrene presence: without obstruction or gangrene
== END 2024-11-28 09:01 | disposition home or self-care (01) ==
LOC: HO.HGS 08:45
PROVIDERS: PCP Internal Medicine; Visit Provider Surgery
DX: K42.9 Umbilical hernia without obstruction or gangrene (principal)
CPT/HCPCS: 99212

== ENCOUNTER → 2024-11-28 08:44 | Outpatient (BNVA) | payer MEDICARE, MEDICAID, SELFPAY | PROVIDERS: PCP Internal Medicine; Visit Provider Surgery | DX: Z48.815 Encounter for surgical aftercare following surgery on the digestive system (principal); K42.9 Umbilical hernia without obstruction or gangrene | CPT/HCPCS: 99212 ==